=== PATIENT | male | born 1965 | race Caucasian/White ===

== ENCOUNTER 2020-05-09 09:41 | Inpatient (IN) | payer MEDICAID, SELFPAY ==
[2020-05-09] VITALS (11 sets, daily range): BP systolic 102–130; BP diastolic 60–90; PULSE 58–103; RESP 18–28; TEMP 36.3–37.7; O2SAT 93–98; BMI 35.4
--- NOTE | 2020-05-09 09:49 | ECG_ITS ---
[facility] Test Date: 2020-05-09 Pat Name: Kavon Kunz Department: Room: Gender: Male Insurance Verification Representative: : 1965 Requested By: David Shaikh Order Number: [id number] Tawny MD: Dwayne Keenan M.D. Measurements Intervals [place] Rate: 96 P: 81 CT: 161 QRS: 82 QRSD: 134 T: 85 QT: 371 QTc: 470 Interpretive Statements SINUS RHYTHM POSSIBLE RIGHT ATRIAL ENLARGEMENT [0.25mV P WAVE] INTRAVENTRICULAR CONDUCTION DELAY [130+ ms QRS DURATION] POSSIBLE ANTERIOR MYOCARDIAL INFARCTION , OF INDETERMINATE AGE [30 ms Q WAVE IN V3/V4, OR R < 0.2 mV IN V4] No previous ECG available for comparison Electronically Signed On 05-09-2020 18:28:09 HYDRAULIC ROCK DRILL OPERATOR by Dwayne Keenan M.D. [id number]
--- NOTE | 2020-05-09 10:07 | CT_ITS ---
WS: [id number] CT ABDOMEN AND PELVIS WITH CONTRAST HISTORY: Lower abdominal pain for 3 days. TECHNIQUE: Imaging performed of the abdomen and pelvis with IV contrast. Single phase imaging of the abdomen. Coronal and sagittal reformats are submitted. All CT scans at [facility] use at least one of these dose optimization techniques: automated exposure control; mA and/or kV adjustment per patient size (includes targeted exams where dose is matched to clinical indication); or iterativ e reconstruction. IV CONTRAST: Omnipaque 300; 95 mL IV. Oral contrast: No DLP: 1896.08 mGy.cm COMPARISON: None available. Lower thorax: Hyperexpansion of the lung bases. There is mild interstitial thickening and slight nodu larity suggesting respiratory bronchiolitis/pneumonitis. Heart is normal size. No hiatal hernia. Liver/biliary system: Hepatic steatosis. Marked hepatomegaly. The liver extends greater than 20 cm in length. No bile duct dilatation. No mass. Gallbladder: Normal. No gallstones or wall thickening. No pericholecystic fluid. Pancreas: Normal. Spleen: Normal. Adrenal glands: Normal RIGHT adrenal gland. Well-circumscribed low-attenuation mass measuring 1.8 cm in the LEFT adrenal gland. Right kidney: Normal. Left kidney: Normal. Aorta: Normal. Lymphadenopathy: None. Free fluid: No free fluid. There is a large amount of mesenteric inflammation centered surrounding th e sigmoid colon. GI tract: Severe inflammatory change involving the sigmoid colon over length of 8 cm. There is signif icant narrowing of the lumen with numerous diverticula and wall thickening. Severe wall thickening wi th evidence for perforation. There are numerous scattered foci of free air throughout the abdomen. Si gnificant amount of free air is present. Site of perforation is probably from the anterior sigmoid co tan where there is a large amount of inflammation and air seen between the lumen and the fat. No absc ess. Abdominal wall: Unremarkable abdominal wall. No hernia. Pelvis: Normal. Bones: Spondylitic changes in the lumbar spine. Sclerotic bone island in the LEFT ilium. CT/CT abdomen pelvis w con* [id number] IMPRESSION: 1. Significant amount of free air within the abdomen and pelvis. Free air is f rom a perforated sigmoid colon. Marked wall thickening and numerous sigmoid div erticula. Perforated sigmoid diverticulitis, underlying neoplasm is not exclude d. 2. Large amount of inflammatory change surrounding the sigmoid colon. 3. Normal appendix. 4. Marked hepatomegaly and hepatic steatosis. 5. Indeterminate LEFT adrenal nodule. Recommend follow-up CT protocol adrenal nodule evaluation after patient's acute episode of perforation resolves. Notified David Pereira DO at 05/09/2020 11:09 AM.
--- NOTE | 2020-05-09 10:08 | ED_ITS ---
HPI - Abdominal Pain General: Chief Complaint: Abdominal Pain Stated Complaint: AB PAIN Time Seen by Provider: 05/09/20 09:48 History of Present Illness: HPI narrative: 54-year-old male [resemt with abd pain. Patient's pain began yesterday. He felt like he was constipated was unable to go as a difficult time with urination or bowel movements. He states he has had a fever subjectively but when tested it is been normal. He is not having any chest pains any difficulty breathing he does state he is difficulty with urination is difficult however to get him to clarify of his just difficulty emptying bladder or actual dysuria. MD elicited complaint: abdominal pain Pertinent past history: constipation Onset (ago): day(s) (1) Location: Diffuse Severity: moderate Quality: cramping Radiation: none Exacerbating factors: movement Relieving factors: rest Associated Symptoms: Reports nausea and poor appetite; Denies anorexia, belching, bloating, change in bowel habits, change in stool character, chills, coffee ground emesis, constipation, GI cramping, diarrhea, dyspepsia, dysuria, excessive flatus, fever(s), heartburn, hematochezia, hematuria, hematemesis, fecal incontinence, loose stools, melena, syncope and vomiting Review of Systems Const: Denies: fever(s) or chills ENMT: Denies: throat pain, ear or mastoid pain, nasal discharge or nasal congestion Card: Denies: syncope Resp: Denies: dyspnea, productive cough or non-productive cough GI: Reports: nausea; Denies: vomiting, hematemesis, coffee ground emesis, heartburn, diarrhea, constipation, bloating, GI cramping, belching, excessive flatus, fecal incontinence, change in bowel habits, change in stool character, hematochezia or melena : Denies: dysuria or hematuria Skin/Breast: Denies: rash or pruritus PFSH ED PFSH: Medical History (Updated 05/09/20 @ 11:53 by Ramos Fofana MD) Arthritis Diverticulosis Hypertension Surgical History (Updated 05/09/20 @ 11:49 by Ramos Fofana MD) History of cervical discectomy Social History (Updated 05/09/20 @ 12:03 by Ramos Fofana MD) Smoking and tobacco status: current some day smoker smokeless tobacco Smokeless tobacco user: chewing tobacco Alcohol intake: current Alcohol use comment: Every other month or so Lives independently: Yes Household members: none Previous occupational history: Disabled secondary to arthritis Physical Exam Const: COMMON NORMALS: no acute distress GENERAL APPEARANCE: cooperative and comfortable ORIENTATION/CONSCIOUSNESS: Yes awake, Yes oriented to person, Yes oriented to place and Yes oriented to time HENMT: COMMON NORMALS: normocephalic, atraumatic and hearing grossly normal bilaterally HEAD & SCALP: normocephalic and atraumatic Neck/C-Spine: COMMON NORMALS: no JVD Resp: COMMON NORMALS: normal respiratory effort, No retractions, No use of accessory muscles and clear to auscultation bilaterally AUSCULTATION: clear to auscultation bilaterally Cardio: COMMON NORMALS: no JVD, regular rate, regular rhythm and No murmurs present (Cardio) RATE: regular rate RHYTHM: regular rhythm GI: COMMON NORMALS: No hepatosplenomegaly present AUSCULTATION: Yes normoactive bowel sounds PALPATION: Yes Tenderness to palpation present (GI) (difuse), No Guarding due to palpation present (GI) and Yes No hepatosplenomegaly present Extremity: COMMON NORMALS: normal to inspection, capillary refill normal, no clubbing, cyanosis or edema, no calf tenderness and no pedal edema Neuro: SENSORIUM/ORIENTATION: Yes oriented to person, Yes oriented to place and Yes oriented to time Skin: COMMON NORMALS: no rashes or lesions noted GENERAL SKIN EXAM: no rashes or lesions noted Course Vital Signs: Vital signs: Vital Signs Temperature 98.3 F 05/10/20 04:00 Pulse Rate 82 05/10/20 04:00 Respiratory Rate 19 H 05/10/20 05:59 Blood Pressure 122/75 05/10/20 04:00 Pulse Oximetry 95 05/10/20 04:00 MDM - Abdominal Pain MDM Narrative: Medical decision making narrative: CT shows free air in the abdomen. Reviewed with Dr. Mccallum. Patient has perforated diverticuli discussed with Patient started on Zosyn and will be admitted to his services orders are written. Lab Data: Labs: Lab Results 05/09/20 05/09/20 05/09/20 Range/Units 10:04 10:04 10:04 WBC 14.3 H (4.0-10.0) 10^3/ uL RBC 5.20 (4.1-5.3) 10^6/u L Hgb 15.4 (11.7-16.6) g/dL Hct 48.8 (42.0-52.0) % MCV 93.8 (80-94) fL MCH 29.6 (28.0-34.0) pg MCHC 31.6 (30.0-36.0) g/dL RDW 12.1 (12.1-15.1) % Plt Count 231 (130-400) 10^3/c mm MPV 10.7 H (7.4-10.4) fL Neut % (Auto) 86.0 % Lymph % (Auto) 7.7 % Sabine % (Auto) 4.3 % Eos % (Auto) 0.7 % Baso % (Auto) 0.6 % Neut # (Auto) 12.26 H (1.8-7.7) 10^3/u L Lymph # (Auto) 1.1 (0.8-4.8) 10^3/u L Sabine # (Auto) 0.6 (0.2-0.9) 10^3/u L Eos # (Auto) 0.1 (0.0-0.8) 10^3/u L Baso # (Auto) 0.1 (0.0-0.1) 10^3/u L Nucleated RBC % (a uto) 0 % Nucleated RBCs # 0.0 /100WBC Sodium 133 L (136-145) mmol/L Potassium 4.4 (3.5-5.1) mmol/L Chloride 94 L (98-107) mmol/L Carbon Dioxide 28 (22-29) mmol/L Anion Gap 15.4 (5-19) BUN 5 L (6-20) mg/dL Creatinine 0.6 L (0.7-1.2) mg/dL GFR Calculation 139.9 H (90-130) mL/min Glucose 322 H (65-115) mg/dL Calculated Osmolal ity 286 (285-295) mOsm/k g Lactic Acid (0.5-2.2) mmol/L Calcium 9.4 (8.5-10.5) mg/dL Magnesium 1.8 (1.7-2.3) mg/dL Total Bilirubin 1.5 H (0.15-1.2) mg/dL AST 15 (0-40) U/L ALT 25 (0-41) U/L Alkaline Phosphata se 129 (40-130) IU/L Troponin T Baselin e 9 (0-15) ng/L Total Protein 6.5 L (6.6-8.7) g/dL Albumin 4.2 (3.5-5.2) g/dL Globulin 2.3 (1.3-4.6) g/dL Lipase 10 L (13-60) U/L Urine Color (Yellow) Urine Appearance (CLEAR) Urine pH (5-7) Ur Specific Gravit y (1.005-1.030) Urine Protein (Negative) Urine Glucose (UA) (Normal) Urine Ketones (Negative) Urine Blood (Negative) Urine Nitrate (Negative) Urine Bilirubin (Negative) Prot Sulfosalicyli c Acd (Negative) Urine Urobilinogen (Negative) mg/dL Ur Leukocyte Keysha ase (Negative) 05/09/20 05/09/20 Range/Units 10:04 11:36 WBC (4.0-10.0) 10^3/ uL RBC (4.1-5.3) 10^6/u L Hgb (11.7-16.6) g/dL Hct (42.0-52.0) % MCV (80-94) fL MCH (28.0-34.0) pg MCHC (30.0-36.0) g/dL RDW (12.1-15.1) % Plt Count (130-400) 10^3/c mm MPV (7.4-10.4) fL Neut % (Auto) % Lymph % (Auto) % Sabine % (Auto) % Eos % (Auto) % Baso % (Auto) % Neut # (Auto) (1.8-7.7) 10^3/u L Lymph # (Auto) (0.8-4.8) 10^3/u L Sabine # (Auto) (0.2-0.9) 10^3/u L Eos # (Auto) (0.0-0.8) 10^3/u L Baso # (Auto) (0.0-0.1) 10^3/u L Nucleated RBC % (a uto) % Nucleated RBCs # /100WBC Sodium (136-145) mmol/L Potassium (3.5-5.1) mmol/L Chloride (98-107) mmol/L Carbon Dioxide (22-29) mmol/L Anion Gap (5-19) BUN (6-20) mg/dL Creatinine (0.7-1.2) mg/dL GFR Calculation (90-130) mL/min Glucose (65-115) mg/dL Calculated Osmolal ity (285-295) mOsm/k g Lactic Acid 3.1 H (0.5-2.2) mmol/L Calcium (8.5-10.5) mg/dL Magnesium (1.7-2.3) mg/dL Total Bilirubin (0.15-1.2) mg/dL AST (0-40) U/L ALT (0-41) U/L Alkaline Phosphata se (40-130) IU/L Troponin T Baselin e (0-15) ng/L Total Protein (6.6-8.7) g/dL Albumin (3.5-5.2) g/dL Globulin (1.3-4.6) g/dL Lipase (13-60) U/L Urine Color Yellow (Yellow) Urine Appearance Clear (CLEAR) Urine pH 8 H (5-7) Ur Specific Gravit y 1.005 (1.005-1.030) Urine Protein Neg (Negative) Urine Glucose (UA) 4+ H (Normal) Urine Ketones Negative (Negative) Urine Blood Neg (Negative) Urine Nitrate Negative (Negative) Urine Bilirubin Neg (Negative) Prot Sulfosalicyli c Acd Negative (Negative) Urine Urobilinogen 1 H (Negative) mg/dL Ur Leukocyte Keysha ase Negative (Negative) Discharge Plan Discharge Patient Disposition: Admitted As Inpatient Admit Provider: Ramos Fofana Clinical Impression: Diverticulitis, Perforation of sigmoid colon due to diverticulitis Condition: Stable Coding Level of Care Code ED Head Of Talent Management for [place] Fwd Exam Comprehensive
[2020-05-09 10:28] LABS: Basophils # 0.1 10^3/uL (0.0-0.1); Basophils % 0.6 %; Eosinophils # 0.1 10^3/uL (0.0-0.8); Eosinophils % 0.7 %; Hematocrit 48.8 % (42.0-52.0); Hemoglobin 15.4 g/dL (11.7-16.6); Lymphocytes # 1.1 10^3/uL (0.8-4.8); Lymphocytes % 7.7 %; Mean Corpuscular HGB Conc 31.6 g/dL (30.0-36.0); Mean Corpuscular Hemoglobin 29.6 pg (28.0-34.0); Mean Corpuscular Volume 93.8 fL (80-94); Mean Platelet Volume 10.7 fL (7.4-10.4); Monocytes # 0.6 10^3/uL (0.2-0.9); Monocytes % 4.3 %; Neutrophils # 12.26 10^3/uL (1.8-7.7); Nucleated Red Blood Cells % 0 %; Platelet Count 231 10^3/cmm (130-400); Red Cell Distribution Width 12.1 % (12.1-15.1); White Blood Count 14.3 10^3/uL (4.0-10.0)
[2020-05-09 10:46] LABS: Alanine Aminotransferase 25 U/L (0-41); Albumin Level 4.2 g/dL (3.5-5.2); Alkaline Phosphatase 129 IU/L (40-130); Anion Gap 15.4 (5-19); Aspartate Amino Transferase 15 U/L (0-40); Blood Urea Nitrogen 5 mg/dL (6-20); Calcium 9.4 mg/dL (8.5-10.5); Carbon Dioxide 28 mmol/L (22-29); Chloride 94 mmol/L (98-107); Globulin 2.3 g/dL (1.3-4.6); Glomerular Filtration Rate 139.9 mL/min (90-130); Glucose 322 mg/dL (65-115); Lipase 10 U/L (13-60); Magnesium 1.8 mg/dL (1.7-2.3); Osmolality Calculated 286 mOsm/kg (285-295); Potassium 4.4 mmol/L (3.5-5.1); Sodium 133 mmol/L (136-145); Total Bilirubin 1.5 mg/dL (0.15-1.2); Total Protein 6.5 g/dL (6.6-8.7); Troponin(5th) Baseline 9 ng/L (0-15)
[2020-05-09] MEDS: iohexol 300 mg/mL 100 mL Btl IV (10:59)
--- NOTE | 2020-05-09 11:47 | P.HP_ITS ---
Providers/Chief Complaint Admitting Physician: General Surgery Ramos Fofana MD Chief Complaint: AB PAIN History of Present Illness Kavon Kunz is a 54 year old male who says he awoke early in the morning 2 days ago with lower abdominal discomfort. He thought maybe he was just initially constipated. He had a bowel movement yesterday which consisted of small hard balls. The pain persisted. He was experiencing some nausea but has not vomited. This morning he developed some chills and thinks he may have been running a fever. He continued to feel more bloated and was brought by his cousin to the emergency room where a CAT scan showed changes consistent with perforated sigmoid diverticulitis. The patient says he just had a colonoscopy about 2 months ago in [place], [place]. He was told that there were no problems. He denies any known history of colon neoplasia in the family. Of note, the patient usually seeks his medical care in [place], [place]. He elected to come this direction because he is tired of them not doing anything for me. He says he was on some medication for hypertension until recently, but discontinued it because it was killing me and the nurse practitioner would not do anything about it. Review of Systems General: Reports: 10 or more systems reviewed and unremarkable except in HPI and below Const: Reports: fever(s) and chills ENMT: Reports: dry mouth GI: Reports: abdominal pain, nausea, constipation and bloating; Denies: vomiting or hematochezia Musc: Reports: joint pain (Chronic) Medications/Allergies Home Medications Medication Instructions Recorded Confirmed Last Taken Type No Known Home Medications 05/09/20 05/09/20 Unknown History Allergies Allergy/AdvReac Type Severity Reaction Status Date / Time No Known Allergies Allergy Verified 05/09/20 09:53 PFSH Acute PFSH: Medical History (Updated 05/09/20 @ 11:53 by Ramos Fofana MD) Arthritis Diverticulosis Hypertension Surgical History (Updated 05/09/20 @ 11:49 by Ramos Fofana MD) History of cervical discectomy Social History (Updated 05/09/20 @ 12:03 by Ramos Fofana MD) Smoking and tobacco status: current some day smoker smokeless tobacco Smokeless tobacco user: chewing tobacco Alcohol intake: current Alcohol use comment: Every other month or so Lives independently: Yes Household members: none Previous occupational history: Disabled secondary to arthritis Vitals/I&O/Wt Last Vital Signs Temp 98.7 F 05/09/20 09:45 Pulse 103 H 05/09/20 10:38 Resp 18 05/09/20 10:38 Pulse Ox 95 05/09/20 10:38 Weight last 48 hrs Weight 240 lb Physical Exam Narrative: EXAM NARRATIVE: The patient was encountered in his room in the emergency department. He does not appear to be in any acute distress but he asked like he is uncomfortable when he tries to move around. Despite this, he will sit up on the side of his bed and move around fairly regularly. The pupils are equal. No carotid bruits are heard. The lungs reveal some inspiratory wheezes bilaterally. The heart seems regular. The abdomen is moderately obese. Bowel sounds are infrequent. The patient does have scattered tenderness about the abdomen with the maximum area of tenderness across the lower abdomen. No obvious masses are palpated. The extremities reveal no edema. Neurologically the patient appears to be grossly intact Data : 05/09/20 10:04 05/09/20 10:04 CT Abd/Pel: Radiologist's impression: CT abdomen/pelvis 05/09/2020 IMPRESSION: 1. Significant amount of free air within the abdomen and pelvis. Free air is from a perforated sigmoid colon. Marked wall thickening and numerous sigmoid diverticula. Perforated sigmoid diverticulitis, underlying neoplasm is not excluded. 2. Large amount of inflammatory change surrounding the sigmoid colon. 3. Normal appendix. 4. Marked hepatomegaly and hepatic steatosis. 5. Indeterminate LEFT adrenal nodule. Recommend follow-up CT protocol adrenal nodule evaluation after patient's acute episode of perforation resolves. A&P Assessment and plan (1) Perforation of sigmoid colon due to diverticulitis: CT reviewed. There is little question that the patient has a perforation of the sigmoid colon. The radiologist suggested there was a significant amount of free air in the abdomen. I would consider this to be fairly small amount, although the patient does have scattered small bubbles of air even into the upper abdomen. He reports having an otherwise normal colonoscopy about 2 months ago. I discussed diverticulitis with the patient in some detail. We discussed medical and surgical issues of management. I told him that given the current appearance of his CAT scan in addition to his physical exam, I would at least be willing to try some broad-spectrum antibiotics to see if we can get this to improve without surgery. If this does not work, however, we have already disc ussed Shivani procedures, partial colectomy with other possible diversion, etc. He would obviously like to avoid this if at all possible and would like to at least attempt conservative management to start. I am going to place the patient on some broad-spectrum antibiotics and we will continue keeping a close eye on him daily. If he does show improvement hopefully surgery can be avoided. If he does not improve, or certainly if he worsens, then he is aware that surgery is going to be most likely needed. Given his otherwise limited medical history, I am going to hold off on involving the hospitalist team for now, but if he starts showing more evidence of hypertension or other medical issues, I will get them involved for medical management. Status: Acute Attestations Medical Necessity Statement*: Based on my medical assessment, presenting symptoms, medical accuity and consideration of surgical therapy, I expect this patient will require treatment in the hospital for a period spanning at least 2 midnights. Coding Level of Care Code Acute Central Communications Specialist for [facility] Diagnoses Perforation of sigmoid colon due to diverticulitis K57.20
--- NOTE | 2020-05-09 11:49 | ECG_ITS ---
[facility] Test Date: 2020-05-09 Pat Name: Kavon Kunz Department: Room: 279 Gender: Male Door Person: : 1965 Requested By: David Shaikh Order Number: [id number] Tawny MD: Dwayne Keenan M.D. Measurements Intervals [place] Rate: 96 P: 77 SD: 153 QRS: 33 QRSD: 141 T: 89 QT: 384 QTc: 487 Interpretive Statements SINUS RHYTHM WITH OCCASIONAL SUPRAVENTRICULAR PREMATURE COMPLEXES POSSIBLE LEFT ATRIAL ENLARGEMENT [-0.1mV P WAVE IN V1/V2] LEFT BUNDLE BRANCH BLOCK [120+ ms QRS DURATION, 80+ ms Q/S IN V1/V2, 85+ ms R IN I/aVL/V5/V6] Compared to ECG 05/09/2020 10:32:48 Left bundle-branch block now present Intraventricular conduction delay no longer present Myocardial infarct finding no longer present Electronically Signed On 05-09-2020 19:05:34 TELEVISION PRODUCTION TECHNICIAN by Dwayne Keenan M.D. [id number]
[2020-05-09 12:07] LABS: Add Urine Microscopic? NO
[2020-05-09] MEDS: heparin 5,000 unit/mL INJ 1 mL 5000 UNIT SUBCUT (12:07)
[2020-05-09] MEDS: famotidine 20 mg/2 mL INJ IVP (12:13)
[2020-05-09] MEDS: D5-NS 0.45% + KCL 20 mEq 20 MEQ/1,000 ML BAG 100 MEQ IV (12:15)
[2020-05-09 12:19] LABS: Bilirubin Urine Neg (Negative); Blood Urine Neg (Negative); Glucose Urine UA 4+ (Normal); Ketones Urine Negative (Negative); Leukocyte Esterase Urine Negative (Negative); Nitrate Urine Negative (Negative); Protein Urine Neg (Negative); Specific Gravity, Urine 1.005 (1.005-1.030); Sulfosalicylic Acid Urine Negative (Negative); Urine Appearance Clear (CLEAR); Urine Color Yellow (Yellow); Urobilinogen Urine 1 mg/dL (Negative); pH Urine 8 (5-7)
[2020-05-09] MEDS: piperacillin-tazobactam 3.375 GM in sodium chloride 0.9% (plus) 50 ML IV ×2 (12:29→20:51)
[2020-05-09 13:00] LABS: Lactic Sepsis W/Reflex 3.1 mmol/L (0.5-2.2)
[2020-05-09 14:23] LABS: Reflex Lactate Order REFLEX LACTIC ORDERD
[2020-05-09] MEDS: metroNIDAZOLE 500 MG Tablet PO ×2 (15:11→20:52)
[2020-05-09] MEDS: morphine 4 mg/mL SDV 1 mL IVP ×2 (15:28→20:52)
--- NOTE | 2020-05-09 15:49 | ECG_ITS ---
[facility] Test Date: 2020-05-09 Pat Name: Kavon Kunz Department: Room: 250 Gender: Male Personal Vehicle Advisor: : 1965 Requested By: David Shaikh Order Number: [id number] Tawny MD: Dwayne Keenan M.D. Measurements Intervals [place] Rate: 85 P: 72 AR: 155 QRS: 32 QRSD: 139 T: 102 QT: 399 QTc: 475 Interpretive Statements SINUS RHYTHM INTRAVENTRICULAR CONDUCTION DELAY [130+ ms QRS DURATION] POSSIBLE ANTERIOR MYOCARDIAL INFARCTION [30 ms Q WAVE IN V3/V4, OR R < 0.2 mV IN V4], OF INDETERMINATE AGE Compared to ECG 05/09/2020 12:21:45 Intraventricular conduction delay now present Myocardial infarct finding now present Left bundle-branch block no longer present Electronically Signed On 05-09-2020 18:57:03 INSTRUCTOR ADJUNCT SURGICAL TECHNICIAN by Dwayne Keenan M.D. [id number]
[2020-05-09 16:47] LABS: Lactic Acid level (Lactate) 1.7 mmol/L (0.5-2.2)
[2020-05-09 17:43] LABS: Troponin 5 6HR 8.21 ng/L (0-15)
[2020-05-09 17:44] LABS: Troponin 5 6HR Delta -0.79 ng/L (0-12)
[2020-05-09 18:16] LABS: Alanine Aminotransferase 23 U/L (0-41); Albumin Level 3.7 g/dL (3.5-5.2); Alkaline Phosphatase 115 IU/L (40-130); Anion Gap 17.3 (5-19); Aspartate Amino Transferase 14 U/L (0-40); Blood Urea Nitrogen 5 mg/dL (6-20); C Reactive Protein 160.5 mg/L (0.0-4.9); Calcium 8.9 mg/dL (8.5-10.5); Carbon Dioxide 22 mmol/L (22-29); Chloride 95 mmol/L (98-107); Globulin 2.9 g/dL (1.3-4.6); Glomerular Filtration Rate 139.9 mL/min (90-130); Glucose 259 mg/dL (65-115); Osmolality Calculated 276 mOsm/kg (285-295); Potassium 4.3 mmol/L (3.5-5.1); Sodium 130 mmol/L (136-145); Total Bilirubin 1.3 mg/dL (0.15-1.2); Total Protein 6.6 g/dL (6.6-8.7)
[2020-05-10] VITALS (11 sets, daily range): BP systolic 110–129; BP diastolic 74–79; PULSE 81–91; RESP 18–25; TEMP 36.6–37.4; O2SAT 91–95
[2020-05-10] MEDS: famotidine 20 mg/2 mL INJ IVP ×3 (00:11→23:42)
[2020-05-10] MEDS: heparin 5,000 unit/mL INJ 1 mL 5000 UNIT SUBCUT ×3 (00:11→23:42)
[2020-05-10] MEDS: piperacillin-tazobactam 3.375 GM in sodium chloride 0.9% (plus) 50 ML IV ×3 (05:00→20:57)
[2020-05-10] MEDS: morphine 4 mg/mL SDV 1 mL IVP ×4 (05:59→21:08)
[2020-05-10 06:48] LABS: Basophils # 0.1 10^3/uL (0.0-0.1); Basophils % 0.6 %; Eosinophils # 0.1 10^3/uL (0.0-0.8); Eosinophils % 0.5 %; Hematocrit 44.6 % (42.0-52.0); Hemoglobin 14.1 g/dL (11.7-16.6); Lymphocytes # 1.1 10^3/uL (0.8-4.8); Lymphocytes % 8.9 %; Mean Corpuscular HGB Conc 31.6 g/dL (30.0-36.0); Mean Corpuscular Hemoglobin 29.4 pg (28.0-34.0); Mean Corpuscular Volume 92.9 fL (80-94); Mean Platelet Volume 11.2 fL (7.4-10.4); Monocytes # 0.5 10^3/uL (0.2-0.9); Neutrophils # 10.46 10^3/uL (1.8-7.7); Neutrophils % 85.4 %; Nucleated Red Blood Cells % 0 %; Platelet Count 176 10^3/cmm (130-400); Red Cell Distribution Width 11.9 % (12.1-15.1); White Blood Count 12.2 10^3/uL (4.0-10.0)
[2020-05-10 08:12] LABS: Anion Gap 13.2 (5-19); Blood Urea Nitrogen 7 mg/dL (6-20); Calcium 8.5 mg/dL (8.5-10.5); Carbon Dioxide 26 mmol/L (22-29); Chloride 96 mmol/L (98-107); Glomerular Filtration Rate 139.9 mL/min (90-130); Glucose 203 mg/dL (65-115); Osmolality Calculated 276 mOsm/kg (285-295); Potassium 4.2 mmol/L (3.5-5.1); Sodium 131 mmol/L (136-145)
[2020-05-10] MEDS: metroNIDAZOLE 500 MG Tablet PO ×3 (08:57→20:57)
--- NOTE | 2020-05-10 08:58 | P.PN_ITS ---
Subjective Subjective: Interval history: The patient indicates he already feels better this morning. He says he still has pain of 8/10 but he says it is because of my hernias. He is now passing flatus. He was wondering if we could do surgery to cut those hernias out and fix my colon at the same time. Vitals/I&O/Wt Last Vital Signs Temp 98.6 F 05/10/20 07:24 Pulse 83 05/10/20 07:24 Resp 18 05/10/20 07:24 BP 122/78 05/10/20 07:24 Pulse Ox 92 05/10/20 07:24 05/09/20 05/10/20 05/10/20 22:59 06:59 14:59 Intake Total 290 / 1340 1050 / 1340 39.583 / 39.583 Output Total 600 / 1700 1100 / 1700 Balance -310 / -360 -50 / -360 39.583 / 39.583 Weight last 48 hrs Weight 240 lb Physical Exam Narrative: EXAM NARRATIVE: Bowel sounds are better. The patient does have small bilateral inguinal hernias that are only noticeable on Valsalva and reduce spontaneously after the maneuver. His lower abdomen does seem less tender to me today. Data : 05/10/20 05:44 05/10/20 05:44 A&P Assessment and plan (1) Perforation of sigmoid colon due to diverticulitis: The patient's white blood cell count is slightly improved and he is feeling better. Continue intravenous Zosyn. I explained once again the desire to try to keep him out of the operating room right now, as he would likely end up with a colostomy if he had any surgery for his colon. He once again seemed to understand the current plan. Status: Acute (2) Bilateral inguinal hernia: Despite the fact that the patient seems to believe he is having some intermittent symptoms from these, they are both very small and do not pose any kind of an immediate threat. I told him that any procedure to repair these wo uld be something to entertain in the future. Status: Acute Qualifiers: Obstruction and gangrene presence: without obstruction or gangrene Recurrence: non-recurrent Qualified Code(s): K40.20 - Bilateral inguinal hernia, without obstruction or gangrene, not specified as recurrent Attestations Medical Necessity Statement*: Patient requires continued inpatient treatment for intravenous antibiotics/treatment of perforated sigmoid diverticulitis. Coding Level of Care Code Acute Make Up Arranger for [facility] Fwd Diagnoses Perforation of sigmoid colon due to diverticulitis K57.20 Bilateral inguinal hernia K40.20 Obstruction and gangrene presence: without obstruction or gangrene Recurrence: non-recurrent
[2020-05-10] MEDS: sodium chlor 0.9% + KCl 20 mEq 20 MEQ/1,000 ML BAG 100 MEQ IV ×2 (10:49→23:41)
[2020-05-11] VITALS (11 sets, daily range): BP systolic 100–142; BP diastolic 56–77; PULSE 77–86; RESP 15–20; TEMP 36.6–37.4; O2SAT 92–95
[2020-05-11] MEDS: piperacillin-tazobactam 3.375 GM in sodium chloride 0.9% (plus) 50 ML IV ×3 (04:07→20:29)
[2020-05-11 06:22] LABS: Basophils # 0.1 10^3/uL (0.0-0.1); Basophils % 0.6 %; Eosinophils % 0.3 %; Hemoglobin 12.8 g/dL (11.7-16.6); Lymphocytes # 0.7 10^3/uL (0.8-4.8); Lymphocytes % 6.6 %; Mean Corpuscular HGB Conc 31.2 g/dL (30.0-36.0); Mean Corpuscular Hemoglobin 29.1 pg (28.0-34.0); Mean Corpuscular Volume 93.2 fL (80-94); Mean Platelet Volume 10.7 fL (7.4-10.4); Monocytes # 0.5 10^3/uL (0.2-0.9); Monocytes % 4.7 %; Neutrophils % 86.7 %; Nucleated Red Blood Cells % 0 %; Platelet Count 183 10^3/cmm (130-400); White Blood Count 10.7 10^3/uL (4.0-10.0)
[2020-05-11 06:44] LABS: Anion Gap 12.4 (5-19); Blood Urea Nitrogen 7 mg/dL (6-20); Calcium 8.3 mg/dL (8.5-10.5); Carbon Dioxide 25 mmol/L (22-29); Chloride 98 mmol/L (98-107); Glomerular Filtration Rate 139.9 mL/min (90-130); Glucose 165 mg/dL (65-115); Osmolality Calculated 274 mOsm/kg (285-295); Potassium 4.4 mmol/L (3.5-5.1); Sodium 131 mmol/L (136-145)
--- NOTE | 2020-05-11 09:52 | PM.PN ---
Subjective Subjective: Interval history: The patient says he continues to feel better daily. His pain is down to a 6?7/10 today. He continues to pass flatus. The patient's appetite is improving and he was wondering about eating solid food. Vitals/I&O/Wt Last Vital Signs Temp 99.1 F 05/11/20 08:00 Pulse 77 05/11/20 08:00 Resp 18 05/11/20 08:00 BP 108/65 05/11/20 08:00 Pulse Ox 94 05/11/20 08:00 05/10/20 05/11/20 05/11/20 22:59 06:59 14:59 Intake Total 150 / 3366.667 2206.667 / 3366.667 50 / 50 Output Total 851 / 851 Balance 150 / 2515.667 1355.667 / 2515.667 50 / 50 Physical Exam Narrative: EXAM NARRATIVE: Upon entering the room it was found that the patient had a clear liquid tray but somehow was in the process of eating a bowl of oatmeal. Bowel sounds remain a little hypoactive. He still has some scattered tenderness across the lower abdomen. Data : 05/11/20 05:40 05/11/20 05:40 A&P Assessment and plan (1) Perforation of sigmoid colon due to diverticulitis: The patient continues to improve subjectively and objectively. His white blood cell count has nearly normalized. Continue intravenous Zosyn. I told the patient that if he continues to improve it may be possible that we can discharge him on oral antibiotics as early as tomorrow. I will check laboratory studies again in the morning. The patient had some oatmeal on his clear liquid tray; nursing is going to try to keep a close eye on what he gets from dietary. I told him that I would prefer he stay on a clear liquid diet as long as he continues to have pain on the level that he seems to indicate, but his exam certainly does not seem to suggest that he has much tenderness objectively. Status: Acute (2) Bilateral inguinal hernia: Despite the fact that the patient seems to believe he is having some intermittent symptoms from these, they are both very small and do not appear to pose any kind of an immediate threat. I told him that any procedure to repair these would be something to entertain in the future. Status: Acute Qualifiers: Obstruction and gangrene presence: without obstruction or gangrene Recurrence: non-recurrent Qualified Code(s): K40.20 - Bilateral inguinal hernia, without obstruction or gangrene, not specified as recurrent Attestations Medical Necessity Statement*: Patient requires continued inpatient care for intravenous antibiotics for perforated sigmoid diverticulitis. Coding Level of Care Code Acute Six Color Press Operator [facility] Diagnoses Perforation of sigmoid colon due to diverticulitis K57.20 Bilateral inguinal hernia K40.20 Obstruction and gangrene presence: without obstruction or gangrene Recurrence: non-recurrent
[2020-05-11] MEDS: morphine 4 mg/mL SDV 1 mL IVP ×4 (10:16→23:27)
[2020-05-11] MEDS: metroNIDAZOLE 500 MG Tablet PO ×3 (10:17→21:58)
[2020-05-11 11:54] LABS: Coronavirus Test Green County Not Detected
[2020-05-11] MEDS: heparin 5,000 unit/mL INJ 1 mL 5000 UNIT SUBCUT ×2 (14:25→23:29)
[2020-05-11] MEDS: sodium chlor 0.9% + KCl 20 mEq 20 MEQ/1,000 ML BAG 100 MEQ IV (14:25)
[2020-05-11] MEDS: famotidine 20 mg/2 mL INJ IVP ×2 (14:26→23:30)
[2020-05-11 19:16] LABS: Glucose Point of Care 98 mg/dL (70-110)
[2020-05-11] MEDS: ciprofloxacin 500 mg Tablet PO (21:58)
--- NOTE | 2020-05-11 22:36 | PC.NURSE ---
Nursing 24 chart review completed.
[2020-05-12] VITALS (14 sets, daily range): BP systolic 121–154; BP diastolic 66–93; PULSE 72–78; RESP 17–24; TEMP 36–37.1; O2SAT 93–97
[2020-05-12] MEDS: sodium chlor 0.9% + KCl 20 mEq 20 MEQ/1,000 ML BAG 100 MEQ IV ×2 (01:37→15:32)
[2020-05-12] MEDS: piperacillin-tazobactam 3.375 GM in sodium chloride 0.9% (plus) 50 ML IV ×3 (04:26→20:03)
[2020-05-12] MEDS: morphine 4 mg/mL SDV 1 mL IVP ×3 (04:49→21:15)
[2020-05-12] MEDS: ondansetron 2 mg/ML SDV 2 mL 4 MG IVP (05:10)
--- NOTE | 2020-05-12 05:34 | CTR_ITS ---
PROCEDURE INFORMATION: Exam: CT Abdomen And Pelvis Without Contrast Exam date and time: 05/12/2020 5:40 AM Age: 54 years old Clinical indication: Abdominal pain; Localized; Lower; Additional info: Abd pain TECHNIQUE: Imaging protocol: Computed tomography of the abdomen and pelvis without contrast. Radiation optimization: All CT scans at this facility use at least one of these dose optimization techniques: automated exposure control; mA and/or kV adjustment per patient size (includes targeted exams where dose is matched to clinical indication); or iterative reconstruction. COMPARISON: CT abdomen pelvis w con* [id number] 05/09/2020 11:09 AM RADIATION DOSE METRICS: Total DLP (mGy-cm): 1603.05 FINDINGS: Liver: There is hypoattenuation of the hepatic parenchyma compatible with fatty infiltration. Gallbladder and bile ducts: Normal. No calcified stones. No ductal dilation. Pancreas: Normal. No ductal dilation. Spleen: Normal. No splenomegaly. Adrenal glands: Normal. No mass. Kidneys and ureters: Strandy opacities are seen in the perinephric fascia bilaterally likely representing chronic scarring. Stomach and bowel: There are dilated loops of small bowel present containing fluid and air fluid levels proximally with nondilated small bowel present distally, findings compatible with a small-bowel obstruction. The transition is likely present in the right lower quadrant near the ileocecal valve. Strandy and hazy opacities are seen within the cecal mesentery compatible with inflammatory changes. Diverticula seen the sigmoid colon. There is mild bowel wall thickening seen within the mid sigmoid colon , findings that may represent inflammatory changes and diverticulitis. Additionally, there is some free air seen within the mesenteric fat and fascia adjacent to the sigmoid colon likely representing a perforated diverticulum. Appendix: The appendix is visualized and is normal in configuration. Intraperitoneal space: See Stomach and bowel finding. Vasculature: Unremarkable. No abdominal aortic aneurysm. Lymph nodes: Unremarkable. No enlarged lymph nodes. Urinary bladder: Unremarkable as visualized. Reproductive: Unremarkable as visualized. Bones/joints: Unremarkable. No acute fracture. Soft tissues: There are bilateral inguinal hernias present containing fat. CT/CT abdomen pelvis wo con [id number] IMPRESSION: 1. Multiple dilated small bowel loops containing fluid and air fluid levels are seen proximally. There are loops of small bowel seen in the right lower quadrant there are nondilated. These findings are compatible with a small-bowel obstruction. 2. There diffuse inflammatory changes seen within the cecal mesentery and within the mesenteric fat and fascia the mid sigmoid colon. 3. Diverticulosis of the sigmoid colon. There is some bowel wall thickening seen within the mid sigmoid colon and there is adjacent haziness seen within the sigmoid mesentery. These findings are compatible with diverticulitis. Additionally, there is some free air present within the pelvis adjacent to the sigmoid colon and a perforated diverticulum is likely. 4. The appendix is visualized and is normal in configuration. 5. Fatty infiltration of the liver Radiation Dose CTDIVOL = (mGy): DLP = 1603.05 (mGy-cm)
--- NOTE | 2020-05-12 05:49 | PC.NURSE ---
During pain medication administration this nurse noted an increase in abdominal girth. Patient has hyperactive bowel sounds to Left and Right upper quadrants and right lower quadrant. Significant hypoactive bowel sounds to LLQ. Patient vomited approximately 50 ml of brown green emesis. VS taken and are wnl. On reassessment patient voiced increased in abdominal pressure and pain. Physician notified. Orders received.
--- NOTE | 2020-05-12 06:23 | PC.NURSE ---
PATIENT UPDATE: PATIENT TAKEN FOR STAT CT BY THIS NURSE, WHILE OUT OF ROOM HAD EQUIPMENT MAINTENANCE ENGINEER DISPOSE OF ALL LIQUID DUE TO ORDER FROM DR. GALLEGOS TO MAKE HIM NPO. PATIENT CAME BACK TO ROOM, NOTICED ICE IN SINK AND DEMANDED WATER STATING I HAVE TO HAVE SOMETHING TO DRINK OR HE GETS DRY AND CHOKES. YOU CAN CALL THE DR IF YOU WANT TO BUT THAT IS JUST THE WAY IT IS THIS NURSE AND Josey WEBSTER RN ATTEMPTED TO EDUCATE PATIENT ON NEED TO BE NPO DUE TO CHANGES IN BOWEL SOUNDS AND ABDOMINAL GIRTH. BED ALARM WAS SET TO NOTIFY NURSING STAFF IF HE TRIED TO GET UP TO GET FLUIDS TO ATTEMPT TO REDIRECT. BED ALARM WENT OFF WITHIN 5 MINUTES OF IT BEING SET. THIS NURSE ALONG WITH Josey WEBSTER RN ENTERED ROOM AND NOTICED PATIENT WAS WALKING AROUND ROOM WITH A CUP OF WATER HE HAD FILLED IN THE SINK AND RESTATED THAT HE HAD TO HAVE A LITTLE SOMETHING TO SIP ON OR HE COULD NOT BREATH. HE REFILLED THE CUP AND WALKED AWAY FROM STAFF. PATIENT IS AGITATED SO STAFF EXITED HIS ROOM IN AN ATTEMPT TO CALM HIM.
[2020-05-12 06:28] LABS: Basophils # 0.1 10^3/uL (0.0-0.1); Basophils % 0.4 %; Eosinophils % 0.3 %; Hematocrit 43.2 % (42.0-52.0); Hemoglobin 13.6 g/dL (11.7-16.6); Lymphocytes % 8.6 %; Mean Corpuscular HGB Conc 31.5 g/dL (30.0-36.0); Mean Corpuscular Hemoglobin 29.4 pg (28.0-34.0); Mean Corpuscular Volume 93.3 fL (80-94); Mean Platelet Volume 11.2 fL (7.4-10.4); Monocytes # 0.8 10^3/uL (0.2-0.9); Monocytes % 6.9 %; Neutrophils # 9.58 10^3/uL (1.8-7.7); Neutrophils % 82.7 %; Nucleated Red Blood Cells % 0 %; Platelet Count 211 10^3/cmm (130-400); Red Blood Count 4.63 10^6/uL (4.1-5.3); Red Cell Distribution Width 12.1 % (12.1-15.1); White Blood Count 11.6 10^3/uL (4.0-10.0)
[2020-05-12 06:51] LABS: Anion Gap 15.4 (5-19); Blood Urea Nitrogen 11 mg/dL (6-20); Calcium 8.2 mg/dL (8.5-10.5); Carbon Dioxide 22 mmol/L (22-29); Chloride 95 mmol/L (98-107); Glomerular Filtration Rate 139.9 mL/min (90-130); Glucose 150 mg/dL (65-115); Osmolality Calculated 268 mOsm/kg (285-295); Potassium 4.4 mmol/L (3.5-5.1); Sodium 128 mmol/L (136-145)
--- NOTE | 2020-05-12 06:59 | PC.NURSE ---
RAYMOND called and wanted to speak with the doctor of this patient at this time regarding patient CT scan. Updated RAYMOND at it was Dr. Fofana. Called Dr. Fofana and informed them they were needing to speak to him. Dr. Fofana asked that they call his phone as he has a patient on the table in surgery at this time.
--- NOTE | 2020-05-12 08:56 | PM.PN ---
Subjective Subjective: Interval history: I was called at 5:30 AM this morning regarding the patient having more abdominal distention and some emesis. I ordered another CAT scan of the abdomen and pelvis. The reporting radiologist indicated that the patient still has some free air outside of the sigmoid colon but he did not see any any other evidence of free intraperitoneal air. He did see evidence of a small bowel obstruction likely secondary to inflammation from the sigmoid process. The patient says he was feeling well until he woke up this morning with some abdominal cramping and then started having some vomiting. I had nursing placed a nasogastric tube and he says he feels better now. He says he is already had 4 loose bowel movements since this morning. Vitals/I&O/Wt Last Vital Signs Temp 97.9 F 05/12/20 08:00 Pulse 72 05/12/20 08:00 Resp 19 H 05/12/20 08:00 BP 154/93 05/12/20 08:00 Pulse Ox 93 05/12/20 08:00 05/11/20 05/12/20 05/12/20 22:59 06:59 14:59 Intake Total 170 / 2773.333 1350 / 2773.333 576.250 / 576.250 Output Total 325 / 325 Balance 170 / 2448.333 1025 / 2448.333 576.250 / 576.250 Physical Exam Narrative: EXAM NARRATIVE: The patient has some hyperactive bowel sounds in areas. He is distended. He has minimal tenderness on exam, however. Data : 05/12/20 05:25 05/12/20 05:25 CT Abd/Pel: Radiologist's impression: CT scan abdomen/pelvis 05/12/2020 IMPRESSION: 1. Multiple dilated small bowel loops containing fluid and air fluid levels are seen proximally. There are loops of small bowel seen in the right lower quadrant there are nondilated. These findings are compatible with a small-bowel obstruction. 2. There diffuse inflammatory changes seen within the cecal mesentery and within the mesenteric fat and fascia the mid sigmoid colon. 3. Diverticulosis of the sigmoid colon. There is some bowel wall thickening seen within the mid sigmoid colon and there is adjacent haziness seen within the sigmoid mesentery. These findings are compatible with diverticulitis. Additionally, there is some free air present within the pelvis adjacent to the sigmoid colon and a perforated diverticulum is likely. 4. The appendix is visualized and is normal in configuration. 5. Fatty infiltration of the liver A&P Assessment and plan (1) Perforation of sigmoid colon due to diverticulitis: In personally reviewing the CAT scan from this morning, I am a little concerned that the patient has not made much progress since being admitted. The radiologist this morning did not see any evidence of intraperitoneal air other than by the sigmoid colon but I think I can still see some small bubbles of air in the peritoneal cavity. In addition, as mentioned, he now appears to have evidence of at least a partial small bowel obstruction secondary to the inflammatory change which seems to be a little bit more prominent on the right side of the abdomen. His exam at present appears to be unimpressive, however, for a worsening abdominal process otherwise. We have discussed further plans as of today. I am obviously going to continue intravenous antibiotics and hope to see the patient improve from his obstructive process. Obviously we are still hoping to avoid any urgent surgery on the colon if at all possible. He agrees with the plan. Status: Acute (2) Small bowel obstruction: As above. Status: Acute Attestations Medical Necessity Statement*: Patient requires continued inpatient care for treatment of a perforated sigmoid colon/small bowel obstruction. Coding Level of Care Code Acute Supervisor Instrument Mechanics for [facility] Diagnoses Perforation of sigmoid colon due to diverticulitis K57.20 Small bowel obstruction K56.609
[2020-05-12] MEDS: metroNIDAZOLE IV 500 MG/100 ML PREMIX 100 MG IV ×2 (12:05→18:06)
[2020-05-12] MEDS: famotidine 20 mg/2 mL INJ IVP ×2 (12:05→22:46)
[2020-05-12] MEDS: heparin 5,000 unit/mL INJ 1 mL 5000 UNIT SUBCUT ×2 (12:05→22:46)
--- NOTE | 2020-05-12 15:39 | PC.NURSE ---
1530: Patient states NG tube is doing more harm than good, then states it has done it's job and he wants it out. This nurse went over why NG tube was needed. Placed call to Dr. Fofana, per doctor patient states he had several BM's this AM, it is okay to remove NG tube if the patient understands that if N/V or ABD pain returns the NG tube will need to be replaced. Went over this information with the patient. Patient states verbal understanding and NG tube was removed at 1530. Patient tolerated well.
--- NOTE | 2020-05-12 15:46 | PC.NURSE ---
1500: Patient complaining that the NG tube was making his throat sore, and it was swelling. Patient denied any SOB, or difficulties breathing. This nurse took pen light to look at patients throat upon inspection it was noted that patient had chew in his mouth. Patient admitted that it was chew and refused for nurse to take chew and put with his chart after nurse went over that [facility] was a tobacco free facility.
--- NOTE | 2020-05-12 19:34 | PC.RESP ---
Smoking Cessation information sent to patient.
--- NOTE | 2020-05-12 21:24 | PC.NURSE ---
Resident says he thinks his belly is getting larger. Measured at 20:10 with result of 51 1/2 inches. Remeasured at 20:25, no change. Re measured at 21:15 again no change Morphine 2 mg IVP for pain 5/10.
[2020-05-13] VITALS (10 sets, daily range): BP systolic 120–145; BP diastolic 71–84; PULSE 68–84; RESP 16–18; TEMP 35.9–36.7; O2SAT 93–96
[2020-05-13 00:34] LABS: Blood Urine Neg (Negative); Glucose Urine UA 1+ (Normal); Ketones Urine 2+ (Negative); Nitrate Urine Negative (Negative); Protein Urine Neg (Negative); Specific Gravity, Urine 1.015 (1.005-1.030); Urine Appearance Clear (CLEAR); Urine Color Yellow (Yellow); pH Urine 5 (5-7)
[2020-05-13 00:35] LABS: Add Urine Microscopic? YES; Bilirubin Urine Neg (Negative); Leukocyte Esterase Urine Trace (Negative); Urobilinogen Urine Norm (Negative)
[2020-05-13 00:36] LABS: Add Urine Culture? Yes; Bacteria Urine 1+ /hpf; Squamous Epithelial Cell Urine 0-4 /hpf (0-5)
[2020-05-13] MEDS: metroNIDAZOLE IV 500 MG/100 ML PREMIX 100 MG IV ×3 (01:05→16:15)
[2020-05-13] MEDS: sodium chlor 0.9% + KCl 20 mEq 20 MEQ/1,000 ML BAG 100 MEQ IV ×2 (02:21→16:15)
[2020-05-13] MEDS: piperacillin-tazobactam 3.375 GM in sodium chloride 0.9% (plus) 50 ML IV ×3 (03:54→21:29)
[2020-05-13 06:20] LABS: Basophils # 0.1 10^3/uL (0.0-0.1); Basophils % 0.5 %; Eosinophils # 0.1 10^3/uL (0.0-0.8); Eosinophils % 0.7 %; Hematocrit 46.4 % (42.0-52.0); Hemoglobin 14.5 g/dL (11.7-16.6); Lymphocytes # 1.2 10^3/uL (0.8-4.8); Lymphocytes % 9.2 %; Mean Corpuscular HGB Conc 31.3 g/dL (30.0-36.0); Mean Corpuscular Hemoglobin 29.3 pg (28.0-34.0); Mean Corpuscular Volume 93.7 fL (80-94); Mean Platelet Volume 11.3 fL (7.4-10.4); Monocytes # 0.7 10^3/uL (0.2-0.9); Monocytes % 5.7 %; Neutrophils # 10.73 10^3/uL (1.8-7.7); Nucleated Red Blood Cells % 0 %; Platelet Count 251 10^3/cmm (130-400); Red Blood Count 4.95 10^6/uL (4.1-5.3); Red Cell Distribution Width 12.4 % (12.1-15.1); White Blood Count 12.9 10^3/uL (4.0-10.0)
--- NOTE | 2020-05-13 06:50 | P.PN_ITS ---
Subjective Subjective: Interval history: The patient insisted on his nasogastric tube being removed yesterday afternoon. He said it was causing him more problems than it was helping. He says he has had multiple bowel movements and is passing flatus this morning. He has had no nausea since the tube was removed. He says his pain level in his abdomen is down to a 1/10. Vitals/I&O/Wt Last Vital Signs Temp 97.7 F 05/13/20 06:50 Pulse 80 05/13/20 06:50 Resp 17 05/13/20 06:50 BP 137/76 05/13/20 06:50 Pulse Ox 94 05/13/20 06:50 05/12/20 05/12/20 05/13/20 14:59 22:59 06:59 Intake Total 676.250 / 2576.250 150 / 2576.250 1750 / 2576.250 Output Total 300 / 1925 775 / 1925 850 / 1925 Balance 376.250 / 651.250 -625 / 651.250 900 / 651.250 Physical Exam Narrative: EXAM NARRATIVE: Bowel sounds are present. The patient's abdomen still seems distended but in talking to him this morning, he says this is normal for him over the past several years. He has no appreciable tenderness on my exam. Data : 05/13/20 04:54 05/12/20 05:25 A&P Assessment and plan (1) Perforation of sigmoid colon due to diverticulitis: The patient once again seems to be improving, although his white blood cell count remains mildly elevated. His pain seems to have resolved and he is now stooling frequently. I told the patient I like to leave him in the hospital least 1 more day to make sure things continue to go well. I will allow him some consistent carbohydrate clear liquids in the interim. Status: Acute (2) Small bowel obstruction: Seems to have resolved. Status: Acute Attestations Medical Necessity Statement*: Patient requires continued inpatient care for treatment of perforated sigmoid diverticulitis and resolving small bowel obstruction. Coding Level of Care Code Acute Title Specialist for [facility] Diagnoses Perforation of sigmoid colon due to diverticulitis K57.20 Small bowel obstruction K56.609
[2020-05-13 07:01] LABS: Anion Gap 17.3 (5-19); Blood Urea Nitrogen 9 mg/dL (6-20); Calcium 8.6 mg/dL (8.5-10.5); Carbon Dioxide 20 mmol/L (22-29); Chloride 99 mmol/L (98-107); Glomerular Filtration Rate 172.6 mL/min (90-130); Glucose 147 mg/dL (65-115); Osmolality Calculated 275 mOsm/kg (285-295); Potassium 4.3 mmol/L (3.5-5.1); Sodium 132 mmol/L (136-145)
[2020-05-13] MEDS: ciprofloxacin 500 mg Tablet PO ×2 (08:09→21:27)
--- NOTE | 2020-05-13 09:04 | PC.NURSE ---
IV RESTART 2ND ATTEMPT TO GIVE PT MEDICATION - NOTED IV PULLED FROM RIGHT AC - DISCONTINUED - NEW IV PLACED TO RIGHT HAND #22 GAUGE - PT STATES - REPEATEDLY - I JUST WANT TO SLEEP - I DONT NEED ALL OF THIS STUFF - WHO TOLD YOU TO DO THIS - EDUCATED PT ON DR REVELES PLAN OF CARE FOR THE DAY
[2020-05-13] MEDS: heparin 5,000 unit/mL INJ 1 mL 5000 UNIT SUBCUT ×2 (11:02→23:37)
[2020-05-13] MEDS: famotidine 20 mg/2 mL INJ IVP ×2 (11:02→23:37)
--- NOTE | 2020-05-13 16:20 | PC.NURSE ---
AMBULATION EDUCATION ROUNDING ASSESSMENT PER THIS NURSE - PT COMPLAINS I'D BE FINE IF MY BELLY WASN'T BLOATED INSTRUCTED PT TO SLOW FLUID INTAKE - PT STATES I KNOW ALSO REEDUCATED PT TO DR REVELES ORDER OF AMBULATION TID - PT STATES I HAVE BEEN UP EDUCATED PER THIS NURSE THAT DR REVELES ORDER REFER TO AMBULATING IN [place] - PT VERBALIZES UNDERSTANDING AND STATES HE WILL BE UP SOON THAT HE'S VERY TIRED
--- NOTE | 2020-05-13 18:37 | PC.NURSE ---
AMBULATED UP IN [place] AMBULATING - FLORENCIO LUGO
[2020-05-14] MEDS: metroNIDAZOLE IV 500 MG/100 ML PREMIX 100 MG IV (01:39)
[2020-05-14 04:00] VITALS: BP 148/79; PULSE 67; RESP 18; TEMP 36.7; O2SAT 95
[2020-05-14] MEDS: piperacillin-tazobactam 3.375 GM in sodium chloride 0.9% (plus) 50 ML IV (04:01)
[2020-05-14] MEDS: sodium chlor 0.9% + KCl 20 mEq 20 MEQ/1,000 ML BAG 100 MEQ IV (04:02)
[2020-05-14 05:03] LABS: Basophils # 0.1 10^3/uL (0.0-0.1); Basophils % 0.6 %; Eosinophils # 0.2 10^3/uL (0.0-0.8); Eosinophils % 1.4 %; Hematocrit 41.8 % (42.0-52.0); Hemoglobin 13.1 g/dL (11.7-16.6); Lymphocytes # 1.6 10^3/uL (0.8-4.8); Mean Corpuscular HGB Conc 31.3 g/dL (30.0-36.0); Mean Corpuscular Hemoglobin 29.4 pg (28.0-34.0); Mean Corpuscular Volume 93.7 fL (80-94); Mean Platelet Volume 10.4 fL (7.4-10.4); Monocytes # 0.7 10^3/uL (0.2-0.9); Monocytes % 5.2 %; Neutrophils # 9.79 10^3/uL (1.8-7.7); Neutrophils % 78.5 %; Nucleated Red Blood Cells % 0 %; Platelet Count 286 10^3/cmm (130-400); Red Blood Count 4.46 10^6/uL (4.1-5.3); Red Cell Distribution Width 12.6 % (12.1-15.1); White Blood Count 12.5 10^3/uL (4.0-10.0)
[2020-05-14 05:28] LABS: Anion Gap 14.9 (5-19); Blood Urea Nitrogen 9 mg/dL (6-20); Calcium 8.4 mg/dL (8.5-10.5); Carbon Dioxide 23 mmol/L (22-29); Chloride 102 mmol/L (98-107); Glomerular Filtration Rate 172.6 mL/min (90-130); Glucose 134 mg/dL (65-115); Osmolality Calculated 283 mOsm/kg (285-295); Potassium 3.9 mmol/L (3.5-5.1); Sodium 136 mmol/L (136-145)
[2020-05-14 06:00] VITALS: PULSE 72
[2020-05-14 06:59] VITALS: BP 147/88; PULSE 70; RESP 18; TEMP 37.2; O2SAT 97
[2020-05-14] MEDS: levalbuterol 0.63 mg/3 mL Neb INHALATION (07:42)
[2020-05-14 07:43] VITALS: PULSE 73; RESP 16; O2SAT 96
--- NOTE | 2020-05-14 07:46 | PC.NURSE ---
Patient refused to get up to a chair for breakfast
[2020-05-14 07:50] VITALS: PULSE 77
--- NOTE | 2020-05-14 07:54 | P.DS_ITS ---
Discharge Providers Date of Admission: 05/09/20 11:41 Date of Discharge: May 14, 2020 Attending Provider at Admission: Ramos Fofana MD Attending Provider at Discharge: Ramos Fofana MD Primary Care Provider: Kavon Pak MD Diagnoses at Discharge Discharge Diagnosis (1) Perforation of sigmoid colon due to diverticulitis: Status: Acute (2) Small bowel obstruction: Status: Acute Reason for Visit Reason for Visit: AB PAIN Hospital Course Hospital Course This is a 54-year-old white male who presented to the [facility] emergency room with a several day history of abdominal pain. The patient actually resides in [place], but his cousin who lives in [place] was with him and brought him to [place]. A CAT scan revealed changes of sigmoid diverticulitis with perforation. The perforation seemed somewhat limited to me, although the patient did have small bubbles of air throughout areas of the peritoneal cavity. We discussed at least an attempt at conservative management to avoid surgery and a probable colostomy. He definitely agreed with this approach. The patient was started on broad-spectrum antibiotics and he slowly improved. His white blood cell count defervesced. He was eventually started on some oral antibiotics (in addition to the ongoing IV medications) in anticipation of discharge, but then ended up having more bloating and abdominal discomfort with some nausea and vomiting. A repeat CAT scan was done and showed some changes of at least a partial small bowel obstruction likely secondary to the inflammatory change in the abdomen. A nasogastric tube was placed but later in the day the patient insisted on it being removed because he thought it was hurting him more than helping him. He says even before the nasogastric tube was placed he had already started having bowel movements and flatus again. Fortunately, he continued passing more flatus and stool and did not have any more nausea. His liquid diet was resumed which he tolerated well. By the following day he had absolutely no abdominal pain although his white blood cell count remained minimally elevated. He was afebrile. He was left in the hospital one more day on intravenous antibiotics and still denied any abdominal pain the following morning. He continued to have some loose stool. He was very anxious to be discharged. I made him aware that his white blood cell count was still mildly elevated but I was intending on sending him home on 7 to 10 days of oral antibiotics, anyway. The patient indicated that he has a home health care service that comes in daily to help him with cleaning, etc. He said there was an RN available to take his blood pressure and watch his vital signs, so we will try to make sure that is in place. I made the patient aware that the follow-up for him with me may be a little complicated, as I do not participate in [place] Medicaid outside of the hospital, which is the insurance that he has. He says he was already intending on getting established with a new physician closer to his home, as he did not want a return to [place] which is where he usually seeks his medical care. I told him I would certainly be available for questions or concerns, but he woul d like to try to follow-up closer to home, anyway. He will be discharged on oral ciprofloxacin and metronidazole with instructions to be seen within the next week for follow-up. I told him he could slowly advance his diet and again, will be available at least by phone if he has any questions or concerns. Physical Exam Narrative: EXAM NARRATIVE: On the day of discharge, the patient's abdomen reveals bowel sounds and I cannot elicit any tenderness on palpation. The patient is afebrile. Discharge Data Data Completed and Pending: Completed Studies During Hospitalization Category Date Time Status CT abdomen pelvis w con* [id number] Stat Cat Scan 05/09/20 10:[address] abdomen pelvis wo con [id number] Stat Cat Scan 05/12/20 05:34 Completed Pending at discharge Category Date Time Status Basic Metabolic P omar AM LABS Lab 05/15/20 04:00 Ordered Complete Blood Co unt w/Auto AM LABS Lab 05/15/20 04:00 Ordered Urine Culture Sta t Lab 05/13/20 00:18 Results Labs from last 24 hours 05/14/20 05/14/20 04:08 04:08 WBC 12.5 H RBC 4.46 Hgb 13.1 Hct 41.8 L MCV 93.7 MCH 29.4 MCHC 31.3 RDW 12.6 Plt Count 286 MPV 10.4 Neut % (Auto) 78.5 Lymph % (Auto) 13.0 Boundary % (Auto) 5.2 Eos % (Auto) 1.4 Baso % (Auto) 0.6 Neut # (Auto) 9.79 H Lymph # (Auto) 1.6 Boundary # (Auto) 0.7 Eos # (Auto) 0.2 Baso # (Auto) 0.1 Nucleated RBC % (a uto) 0 Nucleated RBCs # 0.0 Sodium 136 Potassium 3.9 Chloride 102 Carbon Dioxide 23 Anion Gap 14.9 BUN 9 Creatinine 0.5 L GFR Calculation 172.6 H Glucose 134 H Calculated Osmolal ity 283 L Calcium 8.4 L Vitals: Last Vital Signs Temp 98.9 F 05/14/20 06:59 Pulse 77 05/14/20 07:50 Resp 16 05/14/20 07:43 BP 147/88 05/14/20 06:59 Pulse Ox 96 05/14/20 07:43 Discharge Plan Discharge Patient Disposition: Home Condition: Stable Prescriptions: New ciprofloxacin HCl 500 mg Tablet 500 mg PO BID@0900,2100 Qty: 20 RF: 0 metronidazole 500 mg tablet 500 mg PO TID Qty: 30 RF: 0 Discharge Orders: Discharge Order (Routine); Ordered 05/14/20 Ordered By: Ramos Fofana Discharge Diet: Advance as tolerated Discharge Activity: Increase activity as tolerated Patient Instructions: Ciprofloxacin (By mouth), Metronidazole (By mouth), Inguinal Hernia, Diverticulitis (GEN) Activity Restrictions/Additional Instructions: 1. Follow-up with your primary care physician's office within the next week. Discharge Attestations Time Spent in Discharge Care*: less than 30 min Quality Metrics Clinical Quality Measures During this hospital stay, did patient experience: None Coding Level of Care Code Acute Case Management Social Worker for [facility] Diagnoses Perforation of sigmoid colon due to diverticulitis K57.20 Small bowel obstruction K56.609
[2020-05-14] MEDS: ciprofloxacin 500 mg Tablet PO (08:05)
--- NOTE | 2020-05-14 10:15 | PC.NURSE ---
DISCHARGE INSTRUCTIONS DISCHARGE INSTRUCTIONS GIVEN AT LENGTH PER THIS NURSE - PT STATES YOU'RE PATRICIA I STAYED AND WAITED FOR THESE INSTRUCTIONS - REVIEWED IMPORTANCE OF CARE AND ANTIBOTICS FOR PTS CONDITION - PT RELUCTANTLY VERBALIZES UNDERSTANDING - INFORMATION FAXED TO [facility] - PT UNDERSTANDS HE IS TO CALL [facility] FOR FOLLOW UP IN A WEEK
[2020-05-14 10:28] VITALS: PULSE 77
== END 2020-05-14 10:28 | disposition home or self-care (01) | DRG 392 ==
LOC: ER 11:21 → MEDSURG 12:57
PROVIDERS: Admitting Provider Surgery; Emergency Provider Family Medicine; PCP Family Medicine; Visit Provider Surgery
DX: K57.20 Diverticulitis of large intestine with perforation and abscess without bleeding (principal); K56.609 Unspecified intestinal obstruction, unspecified as to partial versus complete obstruction; K40.20 Bilateral inguinal hernia, without obstruction or gangrene, not specified as recurrent; I10 Essential (primary) hypertension; M19.90 Unspecified osteoarthritis, unspecified site; F17.220 Nicotine dependence, chewing tobacco, uncomplicated; R73.9 Hyperglycemia, unspecified
CPT/HCPCS: 12345; 36415; 36416; 51798; 74176; 74177; 80048; 80053; 81001; 81003; 82962; 83605; 83690; 83735; 84484; 85025; 86140; 87086; 87635; 93005; 94640; 96372; 99285; J1644; J2270; J2405; J2543; J3490; J7614; Q9967; S0030

== ENCOUNTER 2020-05-22 12:33 | Inpatient (IN) | payer MEDICAID, SELFPAY ==
[2020-05-22 12:34] VITALS: BP 112/95; PULSE 87; RESP 14; TEMP 36.9; O2SAT 96; BMI 35.9
--- NOTE | 2020-05-22 12:46 | ED_ITS ---
HPI - Neuro Symptoms/Deficit General: Chief Complaint: Neuro Symptoms/Deficit Stated Complaint: LEFT SIDED WEAKNESS Time Seen by Provider: 05/22/20 12:35 Source: patient Mode of arrival: EMS Limitations: no limitations History of Present Illness: HPI Narrative: 54-year-old male with a history of hypertension started having weakness of his left arm yesterday afternoon. He says that he was going to lift a glass of orange juice when he realized that he could not lift it, over the next 30 to 45 minutes he had worsening weakness and was unable to use the arm at all, and had paresthesia. He decided to go to bed, and when he woke up, it was unchanged. No facial weakness, dysphagia, speech or voice change, lower extremity symptoms, dizziness, vision changes, or recent head injury. He denies any recent sprain or strain. No awkward positioning or neck pain. He has a history of cervical disc disease, status post discectomy and fusion. He does have radicular symptoms on the right upper extremity which are chronic. He was discharged from the hospital on 05/14/2020 after being treated for diverticulitis with perforation, small bowel obstruction. He is still taking Cipro and Flagyl. He denies any fever, nausea or vomiting, but has had a decreased appetite and yesterday did not eat anything after 3 PM. Onset (ago): day(s) Location: left arm History of same: No Relieving factors: none Exacerbating factors: none Context: sudden onset Associated symptoms: Deny chest pain, diaphoresis, headache(s), nausea, vertigo or vomiting Review of Systems General: Reports: 10 or more systems reviewed and unremarkable except in HPI and below Const: Reports: change in appetite and fatigue; Denies: fever(s), chills, body aches or diaphoresis Eyes: Denies: change in vision, blurry vision or blind spots ENMT: Denies: throat pain, uvular edema or hoarseness Card: Denies: chest pain, palpitations, irregular heart rhythm, edema, dyspnea on exertion or orthopnea Resp: Reports: dyspnea, productive cough, wheezing and chest congestion; Denies: pain on inspiration, change in phlegm color or hemoptysis GI: Reports: abdominal pain and bloating; Denies: nausea, vomiting, hematemesis, dysphagia, constipation or melena : Denies: difficulty urinating, dysuria or urinary frequency Musc: Reports: muscle weakness; Denies: back pain or extremity pain Skin/Breast: Denies: rash, pruritus or erythema Neuro: Reports: weakness in extremities and sensory changes; Denies: headache(s), difficulty walking, frequent falls, dizziness, vertigo, confusion, Slurred speech present or difficulty communicating thoughts Endo: Reports: cold intolerance; Denies: polyuria, polydipsia or tired all the time Dinesh/Lymph: Denies: easy bruising, easy bleeding or petechiae PFSH ED PFSH: Medical History Arthritis Bilateral inguinal hernia Diverticulosis Sigmoid diverticulitis with perforation was managed medically with ciprofloxacin and Flagyl Hypertension Perforation of sigmoid colon due to diverticulitis Surgical History History of cervical discectomy Family History (Updated 05/22/20 @ 18:44 by Alberto Dutta MD) Father Cancer Cancer with metastases, cancer unknown Social History Smoking and tobacco status: current some day smoker smokeless tobacco Smokeless tobacco user: chewing tobacco Alcohol intake: current Lives independently: Yes Household members: none Previous occupational history: Disabled secondary to arthritis NIH stroke score NIHSS: Level Of Consciousness - 1a: 0 Level Of Consciousness Questions - 1b: Both Correct Level Of Consciousness Commands - 1c: Both Correct Best Gaze - 2: Normal Visual Moya - 3: No Visual Loss Facial Palsy - 4: Normal Motor Arm Right - 5: No Drift Motor Arm Left - 5: No Effort Against [place] Motor Leg Right - 6: No Drift Motor Leg Left - 6: No Drift Limb Ataxia - 7: Absent Sensory - 8: Mild To Moderate Loss Best Language - 9: No Aphasia Dysarthia - 10: Normal Extinction And Inattention - 11: 0 Score: Total Score: 4 Physical Exam Const: COMMON NORMALS: patient oriented x3 and alert ORIENTATION/CONSCIOUSNESS: Yes oriented to person, Yes oriented to place and Yes oriented to time HENMT: COMMON NORMALS: normocephalic and atraumatic HEAD & SCALP: normal to inspection, normocephalic and atraumatic FACE & SINUS: normal facial exam and face symmetric THROAT: no uvular edema Eye: COMMON NORMALS: Equal, round and reactive pupils present, EOMs intact bilaterally, conjunctivae normal and no scleral icterus GENERAL EYE: ap pearance normal, both eyes and all related structures CONJUNCTIVA: Yes conjunctivae normal Neck/C-Spine: COMMON NORMALS: full ROM, no lymphadenopathy and supple GENERAL: Yes normal visual inspection, Yes trachea midline and No anterior neck swelling CERVICAL SPINE: Yes cervical ROM normal Lymph: LYMPHATIC: no lymphadenopathy noted Chest: COMMONS NORMALS: normal inspection of the chest and normal palpation of entire chest wall Resp: COMMON NORMALS: normal respiratory effort and No retractions EFFORT & INSPECTION: No abnormal respiratory pattern, No tachypneic, No respiratory distress, No labored, Yes Actively coughing and No uses accessory muscles AUSCULTATION: wheezes and bronchial breath sounds Cardio: COMMON NORMALS: regular rate, regular rhythm and S2 normal heart sound present RATE: regular rate RHYTHM: regular rhythm HEART SOUNDS: S2 normal heart sound present GI: COMMON NORMALS: Normal to inspection, nondistended, normoactive bowel sounds present and Soft to palpation INSPECTION: Yes central obesity AUSCULTATION: Yes normoactive bowel sounds PALPATION: Yes Soft to palpation, Yes Tenderness to palpation present (GI) (Mild, diffuse. No rebound or guarding), No Guarding due to palpation present (GI), No Rigid due to palpation and No Ascites present : COMMON NORMALS: Yes no CVA tenderness BLADDER/KIDNEY EXAM: Yes no CVA tenderness Back/Pelvis: COMMON NORMALS: no CVA tenderness and thoracic and lumbar spine normal to inspection Extremity: LEFT UPPER EXTREMITY: Yes upper arm (Radiating pain/paresthesias with palpation of medial upper arm) Left upper arm: Yes palpation and Yes neurovascular exam, Yes lower arm (Wrist drop, flaccid paralysis except for partial strength in thumb) Left lower arm: Yes neurovascular exam and Yes hand & digits (Thumb with some movement, otherwise flaccid paralysis) Left hand and digits: Yes neurovascular exam Neuro: MAKAYLA COMA SCALE: document GCS findings COMMON NORMALS: patient oriented x3 and CN's II-XII intact bilaterally SENSORIUM/ORIENTATION: Yes alert, Yes oriented to person, Yes oriented to place and Yes oriented to time SPEECH: speech normal GAIT: Yes Normal gait present SENSORY EXAM: Yes extremities left light-touch: decreased and sensory level loss detected MOTOR EXAM: Abnormal motor strength present left proximal 1 / 5 , Pronator motor function present, No Tremors during motor activity present, No Asterixis during motor activity present, No Motor fasciculations present and Abnormal muscle tone present flaccid: left upper extremity DEEP TENDON REFLEXES: Left brachioradialis reflex intensity grade: 2+ Skin: COMMON NORMALS: no rashes or lesions noted, no wounds, turgor normal and no jaundice GENERAL SKIN EXAM: no rashes or lesions noted and turgor normal LESIONS: no lesions RASHES: no rashes Course Reevaluation(s): Reevaluation #1: There is no improvement in the proximal muscles of his left arm. He is asking for food, says he has not eaten since yesterday afternoon. Giving him a second p.o. dose of potassium 20 mEq. Time: 15:48 Vital Signs: Vital signs: Vital Signs Temperature 98.5 F 05/22/20 12:34 Pulse Rate 92 05/22/20 15:55 Respiratory Rate 18 05/22/20 15:55 Blood Pressure 156/81 05/22/20 15:55 Pulse Oximetry 96 05/22/20 15:55 MDM - Neuro Symptoms/Deficit MDM Narrative: Medical decision making narrative: 54-year-old male with acute onset flaccid paralysis of his left arm yesterday at approximately 9 PM. No other neuro deficits found on exam or by history. CT and CTA negative for any acute lesions. Critical hypokalemia-oral replacement, 60 mEq Hyponatremia 126, IV fluid resuscitation. He had some proximal muscle improvement, but still no wrist or finger movement. Vascularly intact. Discussed the case with the on-call neurologist at [facility]. He recommends the patient be admitted for stroke work-up. Discussed the case with Dr Dutta, he accepts the admission. Differential Diagnosis: Neuro Differential Diagnosis: Likely peripheral neuropathy and cerebrovascular accident Medical Records: Attestation: I reviewed the patient's medical records. Lab Data: Attestation: I reviewed the patient's lab results. Labs: Lab Results 05/22/20 05/22/20 Range/Units 12:54 12:54 WBC 19.6 H (4.0-10.0) 10^3/ uL RBC 4.71 (4.1-5.3) 10^6/u L Hgb 13.5 (11.7-16.6) g/dL Hct 41.4 L (42.0-52.0) % MCV 87.9 (80-94) fL MCH 28.7 (28.0-34.0) pg MCHC 32.6 (30.0-36.0) g/dL RDW 12.4 (12.1-15.1) % Plt Count 400 (130-400) 10^3/c mm MPV 10.6 H (7.4-10.4) fL Neut % (Auto) 81.6 % Lymph % (Auto) 7.8 % Crane % (Auto) 4.1 % Eos % (Auto) 0.5 % Baso % (Auto) 0.6 % Neut # (Auto) 15.99 H (1.8-7.7) 10^3/u L Lymph # (Auto) 1.5 (0.8-4.8) 10^3/u L Crane # (Auto) 0.8 (0.2-0.9) 10^3/u L Eos # (Auto) 0.1 (0.0-0.8) 10^3/u L Baso # (Auto) 0.1 (0.0-0.1) 10^3/u L Nucleated RBC % (a uto) 0 % Nucleated RBCs # 0.0 /100WBC Sodium 126 L (136-145) mmol/L Potassium 2.7 L* (3.5-5.1) mmol/L Chloride 87 L (98-107) mmol/L Carbon Dioxide 30 H (22-29) mmol/L Anion Gap 11.7 (5-19) BUN 4 L (6-20) mg/dL Creatinine 0.6 L (0.7-1.2) mg/dL GFR Calculation 139.9 H (90-130) mL/min Glucose 219 H (65-115) mg/dL Calculated Osmolal ity 266 L (285-295) mOsm/k g Calcium 8.0 L (8.5-10.5) mg/dL Magnesium 2.4 H (1.7-2.3) mg/dL Total Bilirubin 0.3 (0.15-1.2) mg/dL AST 9 (0-40) U/L ALT < 5 (0-41) U/L Alkaline Phosphata se 74 (40-130) IU/L Total Protein 6.0 L (6.6-8.7) g/dL Albumin 2.7 L (3.5-5.2) g/dL Globulin 3.3 (1.3-4.6) g/dL Discharge Plan Discharge Patient Disposition: Admitted As Inpatient Admit Provider: Alberto Dutta Condition: Stable Coding Level of Care Code ED Change Consultant for roxanna Thomas
--- NOTE | 2020-05-22 13:24 | CT_ITS ---
WS: [id number] CT angio headneck* [id number] REASON FOR EXAM: acutflaccid paralysis and paresthesia of left arm X 16 hours TECHNIQUE: Coronal and sagittal 2-D and MIP reformations. IV CONTRAST ADMINISTERED: 95 mL of Omnipaque 300 TOTAL EXAM DLP: 2518.[address] scans at [facility] use at least one of these dose optimization techniques: automat ed exposure control; mA and/or kV adjustment per patient size (includes targeted exams where dose is matched to clinical indication); or iterative reconstruction. FINDINGS: EXTRACRANIAL: The origin of the great vessels from the aortic arch demonstrate no significant stenosis. The origins of the common carotid arteries are unremarkable. There is moderate stenosis in the origin of the right vertebral artery by calcified plaque. The cervical portions of the common carotid arteries and the vertebral arteries are unremarkable. There is 25-30% stenosis by calcified plaque of the origin of the right and left internal carotid art sung. INTRACRANIAL: The vertebral arteries and the basilar artery at the base of skull are normal. The transition of the internal carotid arteries into the cranial vault are normal. The carotid siphons demonstrate no significant stenosis. The region of the terminus bilaterally is no rmal. The middle and anterior cerebral artery circulations demonstrate no clot, stenosis, aneurysm, or toney riovenous malformation. Normal basilar artery. Posterior cerebral artery circulation demonstrates no clot, stenosis, aneurysm, or arteriovenous malf ormation. The remainder of the posterior fossa circulation is unremarkable. CT/CT angio headneck* [id number] IMPRESSION: Moderate stenosis of the origin of the right vertebral artery. 25-30% stenosis in the origins of the internal carotid arteries bilaterally. No other significant vascular abnormality identified.
--- NOTE | 2020-05-22 13:24 | ECG_ITS ---
[facility] Test Date: 2020-05-22 Pat Name: Kavon Kunz Department: Room: Gender: Male Psychologist [employer]: : 1965 Requested By: Maria Del Carmen Pérez Order Number: [id number] Tawny MD: Juno Muñoz M.D. Measurements Intervals Mobile Rate: 81 P: 59 OH: 173 QRS: 44 QRSD: 158 T: 68 QT: 438 QTc: 511 Interpretive Statements SINUS RHYTHM POSSIBLE LEFT ATRIAL ENLARGEMENT [-0.1mV P WAVE IN V1/V2] LEFT BUNDLE BRANCH BLOCK [120+ ms QRS DURATION, 80+ ms Q/S IN V1/V2, 85+ ms R IN I/aVL/V5/V6] Compared to ECG 05/09/2020 18:44:29 Left bundle-branch block now present Intraventricular conduction delay no longer present Myocardial infarct finding no longer present Electronically Signed On 05-23-2020 22:56:10 CDT by Juno Muñoz M.D. [email or web address] [id number] f
--- NOTE | 2020-05-22 13:42 | CT_ITS ---
WS: [id number] CT head wo con* [id number] REASON FOR EXAM: sudden onset flaccid paralysis LUE IV CONTRAST ADMINISTERED: Noncontrast TOTAL EXAM DLP: 893.[address] scans at [facility] use at least one of these dose optimization techniques: automat ed exposure control; mA and/or kV adjustment per patient size (includes targeted exams where dose is matched to clinical indication); or iterative reconstruction. FINDINGS: Normal bony calvarium. No midline shift or other significant mass effect. Ventricles are normal volume and configuration. No findings of brain parenchymal ischemia or hemorrhage are identified. No extra-axial fluid collecti on or hemorrhage CT/CT head wo con* [id number] IMPRESSION: No acute intracranial abnormality.
[2020-05-22 13:53] LABS: Basophils # 0.1 10^3/uL (0.0-0.1); Basophils % 0.6 %; Eosinophils # 0.1 10^3/uL (0.0-0.8); Eosinophils % 0.5 %; Hematocrit 41.4 % (42.0-52.0); Hemoglobin 13.5 g/dL (11.7-16.6); Lymphocytes # 1.5 10^3/uL (0.8-4.8); Lymphocytes % 7.8 %; Mean Corpuscular HGB Conc 32.6 g/dL (30.0-36.0); Mean Corpuscular Hemoglobin 28.7 pg (28.0-34.0); Mean Corpuscular Volume 87.9 fL (80-94); Mean Platelet Volume 10.6 fL (7.4-10.4); Monocytes # 0.8 10^3/uL (0.2-0.9); Monocytes % 4.1 %; Neutrophils # 15.99 10^3/uL (1.8-7.7); Neutrophils % 81.6 %; Nucleated Red Blood Cells % 0 %; Platelet Count 400 10^3/cmm (130-400); Red Blood Count 4.71 10^6/uL (4.1-5.3); Red Cell Distribution Width 12.4 % (12.1-15.1); White Blood Count 19.6 10^3/uL (4.0-10.0)
[2020-05-22 13:59] LABS: Alanine Aminotransferase < 5 U/L (0-41); Albumin Level 2.7 g/dL (3.5-5.2); Alkaline Phosphatase 74 IU/L (40-130); Anion Gap 11.7 (5-19); Aspartate Amino Transferase 9 U/L (0-40); Blood Urea Nitrogen 4 mg/dL (6-20); Carbon Dioxide 30 mmol/L (22-29); Chloride 87 mmol/L (98-107); Globulin 3.3 g/dL (1.3-4.6); Glomerular Filtration Rate 139.9 mL/min (90-130); Glucose 219 mg/dL (65-115); Magnesium 2.4 mg/dL (1.7-2.3); Osmolality Calculated 266 mOsm/kg (285-295); Sodium 126 mmol/L (136-145); Total Bilirubin 0.3 mg/dL (0.15-1.2)
[2020-05-22 14:03] LABS: Potassium 2.7 mmol/L (3.5-5.1)
[2020-05-22 14:09] VITALS: BP 162/93; PULSE 95; RESP 18; O2SAT 94
[2020-05-22] MEDS: potassium chloride oral liq 20 mEq/15 mL UDC 40 MEQ PO (14:17)
[2020-05-22] MEDS: lactated ringers 1,000 ML 999 ML IV (14:17)
[2020-05-22 14:39] LABS: Slide Review Slide Review Perform
[2020-05-22] MEDS: ondansetron 2 mg/ML SDV 2 mL 4 MG IVP (15:42)
[2020-05-22] MEDS: potassium chloride oral liq 20 mEq/15 mL UDC PO (15:42)
[2020-05-22 15:55] VITALS: BP 156/81; PULSE 92; RESP 18; O2SAT 96
[2020-05-22] MEDS: aspirin 325 mg Tablet PO (18:05)
--- NOTE | 2020-05-22 18:23 | PM.HP ---
Providers/Chief Complaint Admitting Physician: Alberto Dutta MD Primary Care Provider: Kavon Pak MD Chief Complaint: LEFT SIDED WEAKNESS History of Present Illness Kavon Kunz is a 54 year old male who presented today with chief complaint of left arm weakness. Patient is stating that his symptoms started at 9 PM yesterday, he did not pay attention to any acute signs of stroke at that time and he went to bed. Next morning he was experiencing similar complaint of left arm and decided to come to the hospital for the evaluation. He is denying any chest pain, shortness of breath, nausea or vomiting however endorsing abdominal pain. Please note he was diagnosed with sigmoid diverticulitis with perforation for which he was managed medically with ciprofloxacin and Flagyl. He is endorsing that his abdominal pain is getting better however he has been having frequent bowel movements. He is endorsing diarrhea for last 4 to 5 days associated with poor p.o. intake, he did not notice any fever or blood in stool. No active vomiting. No previous history of stroke or TIA, he has never been diagnosed with type 2 diabetes. Neurologist at [facility] recommended TIA work-up with MRI in the morning to rule out stroke and keep him on dual antiplatelet therapy Diagnostics in the ER revealed leukocytosis, hyponatremia, hypokalemia, hyperglycemia, potassium was repleted in the ER, I have requested CT abdomen with contrast to rule out any worsening of his underlying diverticulitis, will request C. difficile panel, start him on normal saline at lower rate along Zosyn Review of Systems Const: Reports: body aches, fatigue and malaise; Denies: fever(s) Eyes: Denies: change in vision ENMT: Denies: throat pain Card: Denies: chest pain Resp: Denies: dyspnea GI: Reports: abdominal pain and diarrhea; Denies: nausea or vomiting : Denies: flank pain Musc: Reports: muscle cramps and muscle weakness; Denies: neck pain or extremity swelling Skin/Breast: Denies: lesions Neuro: Reports: weakness in extremities; Denies: headache(s) Psych: Denies: anxiety Endo: Denies: polyuria Dinesh/Lymph: Denies: easy bruising All/Imm: Denies: urticaria Medications/Allergies Home Medications Medication Instructions Recorded Confirmed Last Taken Type ciprofloxacin HCl 500 mg PO BID@0900,2100 #20 tab 05/14/20 05/22/20 05/22/20 09:00 Rx metronidazole 500 mg PO TID #30 tab 05/14/20 05/22/20 05/22/20 09:00 Rx albuterol sulfate 2 puff INHALATION QID PRN 05/22/20 05/22/20 Unknown History famotidine 40 mg PO DAILY 05/22/20 05/22/20 05/22/20 09:00 History ibuprofen [Advil] 200 - 400 mg PO PRN 05/22/20 05/22/20 Unknown History tramadol 50 mg PO Q4H PRN 05/22/20 05/22/20 05/21/20 History Allergies Allergy/AdvReac Type Severity Reaction Status Date / Time No Known Allergies Allergy Verified 05/22/20 12:59 PFSH Acute PFSH: Medical History Arthritis Bilateral inguinal hernia Diverticulosis Sigmoid diverticulitis with perforation was managed medically with ciprofloxacin and Flagyl Hypertension Perforation of sigmoid colon due to diverticulitis Surgical History History of cervical discectomy Family History (Updated 05/22/20 @ 18:44 by Alberto Dutta MD) Father Cancer Cancer with metastases, cancer unknown Social History Smoking and tobacco status: current some day smoker smokeless tobacco Smokeless tobacco user: chewing tobacco Alcohol intake: current Lives independently: Yes Household members: none Previous occupational history: Disabled secondary to arthritis Vitals/I&O/Wt Last Vital Signs Temp 98.5 F 05/22/20 12:34 Pulse 92 05/22/20 15:55 Resp 18 05/22/20 15:55 BP 156/81 05/22/20 15:55 Pulse Ox 96 05/22/20 15:55 05/22/20 05/22/20 05/22/20 06:59 14:59 22:59 Intake Total 1000 / 1000 Balance 1000 / 1000 Weight last 48 hrs Weight 110.223 kg Physical Exam Narrative: EXAM NARRATIVE: Middle-age male who appears more than stated age Clinically looks dehydrated He was sitting at the bedside when entered the room Awake alert oriented x3 GCS 15 cooperative and pleasant during my evaluation S1, S2 no murmur appreciated Abdomen soft, distended no tenderness or signs of peritonitis on deep palpation no signs of guarding or rigidity Lower extremity no weakness Left upper arm flaccid paralysis, he is not able to do any active motion against gravity ER physician noticed some tenderness in axillary areas were EOMI, PERRLA Right arm and hand good strength No joint swelling No sign of cellulitis Data : 05/22/20 12:54 05/22/20 12:54 A&P Assessment and plan (1) Hypokalemia: Status: Acute (2) Hyponatremia: Status: Acute (3) Dehydration: Status: Acute (4) Hyperglycemia: Status: Acute (5) Acute ischemic stroke: Status: Acute Additional A&P Information Acute ischemic stroke with only presentation of left arm flaccid paralysis Patient has not been diagnosed with type 2 diabetes however he has hyperglycemia We will request A1c level Rule out ischemic stroke with MRI head in the morning as per neurology recommendation We will start him on aspirin Plavix along high-dose statins EKG showing sinus rhythm CTA neck revealed 30% bilateral carotid stenosis If MRI is negative and hemoglobin A1c is above 7 I would suspect diabetes induced mononeuritis complex Will request OT evaluate Dehydration with hyponatremia and hypokalemia and worsening leukocytosis Patient experiencing diarrhea We will rule out C. difficile he has been getting ciprofloxacin and Flagyl We will keep him on Zosyn for now We will get CT abdomen pelvis with contrast to rule out worsening of diverticulitis with perforation, he was discharged on 05/[address] Fofana Acute hyponatremia: I will keep him on normal saline at 30 cc/h with target correction goal 6 mmol per 24 hours however corrected sodium with hyperglycemia is 129 Patient clinically is dehydrated, will check TSH and urine osmolarity calculated serum osmolarity low 266 Full code Consistent carb diet Insulin sliding scale DVT prophylaxis Heparin Attestations Medical Necessity Statement*: Anticipating discharge in less than 48 hours will need stroke work-up currently on IV fluids for hyponatremia, history of mild but prolonged depending on his clinical progress Time Spent in Patient Care: (>than 50% of time spent in counselling and/or direct pt care on unit). 45mins Coding Level of Care Code Acute Belt Measurer for Chg Fwd Diagnoses Hypokalemia E87.6 Hyponatremia E87.1 Dehydration E86.0 Hyperglycemia R73.9 Acute ischemic stroke I63.9
--- NOTE | 2020-05-22 18:28 | CTR_ITS ---
PROCEDURE INFORMATION: Exam: CT Abdomen And Pelvis With Contrast Exam date and time: 05/22/2020 6:36 PM Age: 54 years old Clinical indication: Abdominal pain; Patient HX: Prior exam done today with contrast; Additional info: Sigmoid diverticulitis with perforation TECHNIQUE: Imaging protocol: Computed tomography of the abdomen and pelvis with contrast. Radiation optimization: All CT scans at this facility use at least one of these dose optimization techniques: automated exposure control; mA and/or kV adjustment per patient size (includes targeted exams where dose is matched to clinical indication); or iterative reconstruction. Contrast material: OMNI 300; Contrast volume: 95 ml; Contrast route: INTRAVENOUS (IV); COMPARISON: CT abdomen pelvis wo con [id number] 05/12/2020 6:08 AM RADIATION DOSE METRICS: Total DLP (mGy-cm): 1856.18 FINDINGS: Lungs: Partially calcified circumscribed pulmonary nodule in the posterior right middle lobe. Pleural spaces: Small volume layering right pleural effusion slightly increased from prior. Liver: Normal. No mass. Gallbladder and bile ducts: Normal. No calcified stones. No ductal dilation. Pancreas: Normal. No ductal dilation. Spleen: Normal. No splenomegaly. Adrenal glands: Incidental finding of a small left adrenal gland mass. Right adrenal gland normal. Kidneys and ureters: Normal. No hydronephrosis. Stomach and bowel: Scattered diverticulosis coli. Nonspecific diffuse reactive thickening of small bowel loops. Compared with prior the small bowel loops are more decompressed. Appendix: Unremarkable appearance of the appendix. Intraperitoneal space: Scattered small foci of pneumoperitoneum. Compared with prior imaging there is increasing free fluid in the abdominopelvic cavity. There is a bandlike region of fluid across the anterior lower abdomen which demonstrates loculation. The collection spans at least 21 cm transverse with greatest thickness 5.4 cm AP in the left lower quadrant. Vasculature: Scattered atherosclerotic wall plaque of abdominal aorta. No aneurysm. Lymph nodes: Unremarkable. No enlarged lymph nodes. Urinary bladder: Contrast excretion in the bladder noted with no wall thickening of the bladder apparent. Reproductive: Unremarkable as visualized. Bones/joints: Unremarkable. No acute fracture. Soft tissues: No active abdominopelvic bleeding. CT/CT abdomen pelvis w con* [id number] IMPRESSION: 1. Suspect development of elongated bandlike loculated anterior intraperitoneal abdominal abscess new from prior. 2. Persistent pneumoperitoneum. 3. Diffuse inflammation of abdominal mesentery. 4. Diffuse colonic diverticulosis. A perforated sigmoid diverticulitis is possibly the source of perforation. 5. Small bowel loops are decreased in distention compared to the prior. 6. Small right pleural effusion slightly increased from prior. Radiation Dose CTDIVOL = (mGy): DLP = 1856.18 (mGy-cm)
[2020-05-22 18:32] VITALS: BP 97/59; PULSE 88; RESP 21; O2SAT 94
[2020-05-22] MEDS: iohexol 300 mg/mL 100 mL Btl IV (18:56)
[2020-05-22 19:00] VITALS: BP 116/73; PULSE 88; RESP 18; TEMP 36.6; O2SAT 94
[2020-05-22 19:02] LABS: Procalcitonin 0.42 ng/mL (0-0.5)
[2020-05-22] MEDS: sodium chlor 0.9% + KCl 40 mEq 40 MEQ/1,000 ML BAG 30 MEQ IV (20:16)
[2020-05-22] MEDS: sodium chloride 0.9% 1,000 ML 999 ML IV ×2 (20:16→21:34)
[2020-05-22] MEDS: piperacillin-tazobactam 3.375 GM in sodium chloride 0.9% (plus) 50 ML IV (20:17)
[2020-05-22] MEDS: atorvastatin 40 mg Tablet 80 MG PO (20:18)
[2020-05-22] MEDS: enoxaparin 40 mg/0.4 mL Syringe SUBCUT (20:18)
[2020-05-22 21:36] LABS: Glucose Point of Care 176 mg/dL (70-110)
[2020-05-22 21:59] LABS: Estmated Average Glucose 243; Hemoglobin A1C 10.1 % (4.0-6.0)
[2020-05-22 22:00] LABS: Lactate (Lactic Acid level) 0.9 mmol/L (0.5-2.2)
[2020-05-22 22:07] LABS: Chol HDL Ratio 5.47 mg/dL (1.0-5.00); Cholesterol 104 mg/dL (0-200); HDL Cholesterol 19 mg/dL (60-100); LDL Cholesterol Calculated 49 mg/dL (50-129); LDL HDL Ratio 2.58 RATIO (0.00-3.22); Thyroid Stimulating Hormone 2.36 uIU/mL (0.27-4.20); Triglycerides 179 mg/dL (0-150)
[2020-05-22 22:21] VITALS: PULSE 88; RESP 18; O2SAT 94
[2020-05-23] VITALS (7 sets, daily range): BP systolic 100–150; BP diastolic 59–81; PULSE 80–88; RESP 16–24; TEMP 36.4–37.7; O2SAT 93–97
[2020-05-23] MEDS: piperacillin-tazobactam 3.375 GM in sodium chloride 0.9% (plus) 50 ML IV ×3 (04:50→20:32)
[2020-05-23 06:34] LABS: Basophils # 0.1 10^3/uL (0.0-0.1); Basophils % 0.7 %; Eosinophils # 0.2 10^3/uL (0.0-0.8); Eosinophils % 1.1 %; Hematocrit 39.7 % (42.0-52.0); Hemoglobin 12.5 g/dL (11.7-16.6); Lymphocytes # 1.6 10^3/uL (0.8-4.8); Lymphocytes % 10.6 %; Mean Corpuscular HGB Conc 31.5 g/dL (30.0-36.0); Mean Corpuscular Hemoglobin 29.3 pg (28.0-34.0); Mean Corpuscular Volume 93.2 fL (80-94); Mean Platelet Volume 10.4 fL (7.4-10.4); Monocytes # 0.7 10^3/uL (0.2-0.9); Monocytes % 4.7 %; Neutrophils # 11.59 10^3/uL (1.8-7.7); Neutrophils % 77.4 %; Nucleated Red Blood Cells % 0 %; Platelet Count 428 10^3/cmm (130-400); Red Blood Count 4.26 10^6/uL (4.1-5.3)
[2020-05-23 06:34] LABS: Glucose Point of Care 161 mg/dL (70-110)
[2020-05-23 06:41] LABS: Blood Urea Nitrogen 5 mg/dL (6-20); Calcium 7.8 mg/dL (8.5-10.5); Carbon Dioxide 32 mmol/L (22-29); Chloride 95 mmol/L (98-107); Glomerular Filtration Rate 139.9 mL/min (90-130); Glucose 144 mg/dL (65-115); Osmolality Calculated 280 mOsm/kg (285-295); Sodium 135 mmol/L (136-145)
[2020-05-23 07:39] LABS: Slide Review Slide Review Perform
[2020-05-23] MEDS: clopidogrel 75 mg Tablet PO (09:03)
[2020-05-23] MEDS: aspirin 81 mg EC Tablet PO (09:03)
--- NOTE | 2020-05-23 10:05 | PC.OT ---
OT EVALUATION ATTEMPTED; DURING EVALUATION NURSE ENTERS STATING THAT THE PATIENT IS TO GO TO MRI RIGHT NOW. OT EVALUATION TO BE ATTEMPTED AGAIN LATER.
[2020-05-23 11:20] LABS: Glucose Point of Care 232 mg/dL (70-110)
--- NOTE | 2020-05-23 12:00 | MR_ITS ---
WS: [id number] MRI HEAD WITHOUT CONTRAST TECHNIQUE: Sagittal T1, T2 axial, T2 axial FLAIR, axial and coronal T1 images, axial susceptibility w eighted imaging, axial diffusion weighted images, and coronal T2 images were obtained. CLINICAL INFORMATION: flaccid paralysis rt arm COMPARISON: CT May 22, 2020 FINDINGS: Multiple foci of restricted diffusion involving the right frontoparietal junction and parietal cortex consistent with acute ischemia. Mild associated edema. Mild localized mass effect. No midline shift. A few additional tiny punctate foci involving the right parietal cortex dorsally. In addition, a few tiny punctate foci of restricted diffusion involving the right parasagittal occipital lobe and right periventricular parietal white matter. Minimal small vessel changes. Moderate parenchymal volume loss. Normal posterior fossa. Normal vascul ar flow voids at the skull base. No extra-axial fluid collections. Paranasal sinuses and mastoid air cells are well aerated. Benign partially empty sella. No hemosiderin on susceptibly weighted images. Normal optic chiasm and pituitary infundibulum. Mild symmetric atrophy temporal lobes and hippocampal formations. MR/MR head wo con* [id number] IMPRESSION: 1. Patchy foci of restricted diffusion involving the right frontoparietal junc tion and parietal lobe consistent with acute ischemia. Mild associated edema. M ild localized mass effect. No midline shift. 2. A few additional punctate foci of acute ischemia involving the right parasa gittal occipital lobe and right deep parietal white matter. 3. Minimal small vessel changes. Moderate parenchymal volume loss. 4. No hemosiderin on susceptibly weighted images. Attempted Alberto Dutta MD at 05/23/2020 1:36 PM. Not available today Message left for covering physician Dr. Gray 05/23/2020 1:45 PM
--- NOTE | 2020-05-23 12:53 | PC.CHAP ---
Pastoral Care Encounter/Spiritual Assessment Type of Contact [] Declined natural gas basis trader visit [] Patient/Family/Request visit [] Outpatient visit [] Follow-up visit [] Physician referral [] Code/Alert [xx] Routine visit [] Staff referral [] Actively dying [] Patient sleeping [] Family support [] [] Out of room [] Palliative care [] [] Receiving care in room [] Pre-surgical visit [] Trauma [] Long length of stay [] ICU visit [] Other: Relational/Emotional Strength [xx] Patient feels connected with others/family/visitors/staff [] Distress [] Loneliness/isolation [] Abandonment Spirituality of Patient [] Person of María [] Attends Anglican of their María [xx] Believes in Prayer [] Reads Bible or Nondenominational materials [] There are Spiritual issues to be addressed Knock Up Assembler Interventions [xx] Prayer [xx] Active listening [xx] Non-anxious presence [] Spiritual/emotional support [] Crisis/trauma care [] Spiritual counseling [] Bereavement support [] Provided bereavement packet [] Provided Bible/devotional materials [] Provided toy/stuffed animal, coloring book to patient or family member [] Provided Communion [] Anointing/[place] [] Salvation [xx] Completed spiritual assessment [] Other: Impact on Illness or Injury [] Angry [] Fearful [xx] Anxious [] Often cries [] Exhaustion [] Unable to work [] Unable to attend adventist [] Unable to walk/stand [] Unable to read [] Unable to drive [] Unable to eat/drink [] Unable to sleep [] Unable to be with family [] Patient intubated [] Other: Summary Patient stated he is not feeling well and is worried about what happened to his arm. He stated doctors have just scheduled a series of tests to be conducted rest of day. He is very anxious to know results and what treatment will be done. Patient asked natural gas basis trader to help him put shirt on one arm and over other shoulder as he was chilled. Knock Up Assembler complied. Time spent with patient 8 minutes
--- NOTE | 2020-05-23 13:36 | P.PN_ITS ---
Subjective Subjective: Interval history: MRI done, results awaited, no new complaints Medications: Reviewed: Yes Vitals/I&O/Wt Last Vital Signs Temp 97.8 F 05/23/20 12:00 Pulse 80 05/23/20 12:00 Resp 17 05/23/20 12:00 BP 115/74 05/23/20 12:00 Pulse Ox 95 05/23/20 12:00 05/22/20 05/23/20 05/23/20 22:59 06:59 14:59 Intake Total 3000 / 3000 50 / 3050 490 / 490 Output Total 0 / 0 400 / 400 Balance 3000 / 3000 -350 / 2650 490 / 490 Weight last 48 hrs Weight 110.223 kg Physical Exam Narrative: EXAM NARRATIVE: GEN: Awake, alert and oriented, no acute distress CVS: S1S2 N RS: CTA B/L Abd: Soft, nt/nd , bs+ Data : 05/23/20 05:02 05/23/20 05:02 A&P Assessment and plan (1) Hypokalemia: Status: Acute (2) Hyponatremia: Status: Acute (3) Dehydration: Status: Acute (4) Hyperglycemia: Status: Acute (5) Acute ischemic stroke: Status: Acute Additional A&P Information Acute ischemic stroke with left arm flaccid paralysis Patient has not been diagnosed with type 2 diabetes however he has hyperglycemia A1c level at 10 MRI taken this morning, pending Continue aspirin Plavix along high-dose statins EKG showing sinus rhythm CTA neck revealed 30% bilateral carotid stenosis Dehydration with hyponatremia and hypokalemia and worsening leukocytosis Patient experiencing diarrhea We will rule out C. difficile he has been getting ciprofloxacin and Flagyl We will keep him on Zosyn for now CT abdomen with Suspect development of elongated bandlike loculated anterior intraperitoneal abdominal abscess new from prior. and persistent pneumoperitoneum. Surgery consult NPO for now Acute hyponatremia:Improving, likely secondary to dehydration Full code Change to NPO sttaus given intraabdominal abscess Insulin sliding scale DVT prophylaxis : loveox Change to inpatient status given development of intra abdominal abscess, needs iv abx and iv hydration , pending MRI Attestations Medical Necessity Statement*: change to inpatient, willl need >2midnight as noted above Coding Level of Care Code Acute Chair Car Driver for [facility] Fwd Diagnoses Hypokalemia E87.6 Hyponatremia E87.1 Dehydration E86.0 Hyperglycemia R73.9 Acute ischemic stroke I63.9
--- NOTE | 2020-05-23 14:14 | PM.CONSULT ---
Providers/Reason For Consult Consulting Physican/Specialty*: General Surgery Ramos Fofana MD Reason for Consult*: Follow-up perforated diverticulitis. Attending Physician: Ayala Gray MD Primary Care Provider: Kavon Pak MD History of Present Illness History of Present Illness Kavon Kunz is a 54 year old male who I saw during hospitalization a couple of weeks ago for what appeared to be perforated sigmoid diverticulitis (as he stated he had a normal colonoscopy in [place] otherwise only several months ago). He was kept on broad-spectrum antibiotics and symptomatically improved, although his CAT scan continued to show some changes that still were of concern. The patient eventually became somewhat adamant about going home. He went home on oral antibiotics and said he has continued to do very well. He says his bowel habits have improved and his bowel movements are becoming solid again. He says he has minimal abdominal discomfort and has not had any fevers or chills, etc. He was intending to follow-up with physicians in [place], where he is from, but I am not sure that has happened as yet. The night before last, however, he apparently noticed his left arm was going . He has been diagnosed with a CVA. Dr. Gray repeated a CAT scan of his abdomen to follow-up his perforation and he now has some fluid collections in the lower abdomen. His white blood cell count remains mildly elevated, as well. Review of Systems General: Reports: 10 or more systems reviewed and unremarkable except in HPI and below Const: Denies: fever(s) or chills GI: Reports: abdominal pain (Very little ) and change in bowel habits ( Becoming more normal now ) Meds/Allergies Home Medications and Allergies Home Medications Medication Instructions Recorded Confirmed Last Taken Type ciprofloxacin HCl 500 mg PO BID@0900,2100 #20 tab 05/14/20 05/22/20 05/22/20 09:00 Rx metronidazole 500 mg PO TID #30 tab 05/14/20 05/22/20 05/22/20 09:00 Rx albuterol sulfate 2 puff INHALATION QID PRN 05/22/20 05/22/20 Unknown History famotidine 40 mg PO DAILY 05/22/20 05/22/20 05/22/20 09:00 History ibuprofen [Advil] 200 - 400 mg PO PRN 05/22/20 05/22/20 Unknown History tramadol 50 mg PO Q4H PRN 05/22/20 05/22/20 05/21/20 History Allergies Allergy/AdvReac Type Severity Reaction Status Date / Time No Known Allergies Allergy Verified 05/22/20 12:59 Current Medications Current Medications Generic Name Dose Route Start Last Admin Trade Name Freq PRN Reason Stop Dose Admin Aspirin 81 mg 05/23/20 09:00 05/23/20 09:03 Aspirin 81 Mg Ec Tablet PO 81 mg DAILY RAKESH Administration Atorvastatin Calcium 80 mg 05/22/20 21:00 05/22/20 20:18 Atorvastatin 40 Mg Tablet PO 80 mg BEDTIME RAKESH Administration Clopidogrel Bisulfate 75 mg 05/23/20 09:00 05/23/20 09:03 Clopidogrel 75 Mg Tablet PO 75 mg DAILY RAKESH Administration Enoxaparin Sodium 40 mg 05/22/20 20:00 05/22/20 20:18 Enoxaparin 40 Mg/0.4 Ml Syringe SUBCUT 40 mg Q24H RAKESH Administration Piperacillin Sod/Tazobactam 50 mls @ 12.5 mls/hr 05/22/20 20:00 05/23/20 12:53 Sod 3.375 gm/ Sodium Chloride IV 12.5 mls/hr Q8H RAKESH Administration Protocol Potassium Chloride/Sodium Chloride 40 meq in 1,000 mls @ 30 mls/hr 05/22/20 19:30 05/22/20 20:16 Sodium Chlor 0.9% + Kcl 40 Meq IV 30 mls/hr .Q24H RAKESH Administration Insulin Aspart 0 unit 05/22/20 21:00 05/23/20 12:53 Insulin Aspart 100 Unit/1 Ml SUBCUT 8 unit WM&BEDTIME RAKESH Administration Protocol PFSH Acute PFSH: Medical History Arthritis Bilateral inguinal hernia Diverticulosis Sigmoid diverticulitis with perforation was managed medically with ciprofloxacin and Flagyl Hypertension Perforation of sigmoid colon due to diverticulitis Surgical History History of cervical discectomy Family History (Updated 05/22/20 @ 18:44 by Alberto Dutta MD) Father Cancer Cancer with metastases, cancer unknown Social History Smoking and tobacco status: current some day smoker smokeless tobacco Smokeless tobacco user: chewing tobacco Alcohol intake: current Lives independently: Yes Household members: none Previous occupational history: Disabled secondary to arthritis Vitals/I&O/Wt Last Vital Signs Temp 97.8 F 05/23/20 12:00 Pulse 80 05/23/20 12:00 Resp 17 05/23/20 12:00 BP 115/74 05/23/20 12:00 Pulse Ox 95 05/23/20 12:00 05/22/20 05/23/20 05/23/20 22:59 06:59 14:59 Intake Total 3000 / 3050 50 / 3050 490 / 490 Output Total 0 / 400 400 / 400 Balance 3000 / 2650 -350 / 2650 490 / 490 Weight last 48 hrs Weight 243 lb Physical Exam Narrative: EXAM NARRATIVE: The patient was seen in his hospital room. He obviously has trouble moving his left upper extremity, but otherwise does not seem to be in any distress. The pupils are equal. No carotid bruits are heard. The lungs are clear anteriorly. The heart seems regular. The abdomen remains obese and somewhat firm throughout but the patient has no appreciable tenderness on my exam. The extremities reveal no edema. Data Imaging^: CT Abd/Pel: Radiologist's impression: CT abdomen/pelvis 05/23/2020 IMPRESSION: 1. Suspect development of elongated bandlike loculated anterior intraperitoneal abdominal abscess new from prior. 2. Persistent pneumoperitoneum. 3. Diffuse inflammation of abdominal mesentery. 4. Diffuse colonic diverticulosis. A perforated sigmoid diverticulitis is possibly the source of perforation. 5. Small bowel loops are decreased in distention compared to the prior. 6. Small right pleural effusion slightly increased from prior. A&P Assessment and plan (1) Perforation of sigmoid colon due to diverticulitis: The patient symptomatically seems to be getting better, although his CAT scan still shows areas of concern and now shows a couple fluid collections in the lower abdomen along the anterior abdominal wall (along with the previous small loculated area of air, although I think this last finding has improved since his last CAT scan). These appear to be amenable to percutaneous drainage, but may very well not communicate with each other. Although I am not certain that they are infectious, I would prefer to have this fluid gone. With the patient's recent CVA, we would obviously like to avoid an exploration if at all possible. Percutaneous drainage would allow for cultures, and I feel is the best modality in attempting to keep the patient out of the operating room for a larger procedure, particularly while he has a need to be on anticoagulation. Unfortunately, we do not have an interventionalist in radiology who can help us out with this. His medical/surgical issues have now become quite complicated; I would recommend arranging transfer to a facility with a higher level of care for further management. Status: Acute Consult Attestations Medical Necessity Statement: See admitting service's notation. Coding Level of Care Code Acute Prior Authorization Nurse for [facility] Fwd Diagnoses Perforation of sigmoid colon due to diverticulitis K57.20
[2020-05-23] MEDS: potassium chloride ER 20 mEq Tablet 60 MEQ PO (15:34)
[2020-05-23 17:16] LABS: Glucose Point of Care 131 mg/dL (70-110)
--- NOTE | 2020-05-23 19:30 | USCV_ITS ---
Kavon Kunz Age: 54 Gender: M : 1965 Exam Date: 05/23/2020 05:36 Ordering Phys: Alberto Dutta MD Technologist: Heather Mccann Exam Location: [facility] [place] Indication: TIA BP: 120 / 71 HR: Rhythm: Sinus Technical Quality: Adequate MEASUREMENTS (Male / Female) Normal Values 2D ECHO LV Diastolic Diameter PLAX 4.3 cm 4.2 - 5.9 / 3.9 - 5.3 cm LV Systolic Diameter PLAX 2.7 cm LV Chamber Size 4.3 cm IVS Diastolic Thickness 1.5 cm 0.6 - 1.0 / 0.6 - 0.9 cm IVS Systolic Thickness 1.7 cm LVPW Diastolic Thickness 1.6 cm 0.6 - 1.0 / 0.6 - 0.9 cm LVPW Systolic Thickness 1.7 cm RV Chamber Size 3.1 cm LVOT Diameter 2.0 cm LV Ejection Fraction 2D Teich 67.2 % LV Ejection Fraction MOD 2C 66.6 % LV Ejection Fraction 2C AL 67.2 % LA Diameter 3.5 cm LA Width 3.1 cm LA Height 4.4 cm RA Width 3.4 cm RA Height 4.2 cm Aorta at Sinotubular Diameter 2.8 cm M-MODE LV Diastolic Diameter MM 5.2 cm 4.2 - 5.9 / 3.9 - 5.3 cm LV Systolic Diameter MM 3.6 cm LV Ejection Fraction MM Teich 58.1 % IVS Diastolic Thickness MM 1.0 cm 0.6 - 1.0 / 0.6 - 0.9 cm IVS Systolic Thickness MM 1.8 cm LVPW Diastolic Thickness MM 1.1 cm 0.6 - 1.0 / 0.6 - 0.9 cm LVPW Systolic Thickness MM 1.6 cm RV Diastolic Diameter MM 2.8 cm Aortic Annulus Diameter 3.8 cm LA Ao Ratio MM 1.0 MV E Point Septal Separation 0.4 cm DOPPLER AV Peak Velocity 150.0 cm/s LVOT Peak Velocity 126.0 cm/s AV Area Cont Eq vti 3.0 cm squared AV Area Cont Eq pk 2.7 cm squared MV Area PHT 4.2 cm squared Mitral E to A Ratio 1.0 MV E' Velocity 48.5 cm/s Mitral E to MV E' Ratio 8.5 Mitral E to LV E' Lateral Ratio 9.7 Mitral E to LV E' Septal Ratio 7.5 TR Peak Velocity 131.3 cm/s TR Peak Gradient 6.9 mmHg TR Mean Velocity 99.3 cm/s TR Mean Gradient 4.3 mmHg TR Velocity Time Integral 34.0 cm TV Peak E Velocity 63.0 cm/s Right Atrial Pressure 3.0 mmHg Pulmonary Artery Systolic Pressu 9.9 mmHg PV Peak Velocity 69.0 cm/s RV Acceleration Time 0.1 s RV Ejection Time 0.3 s RV AcT/ET 0.3 FINDINGS Left Ventricle Normal left ventricular cavity size. Normal left ventricular systolic function. Left ventricular ejection fraction is estimated at 55 %. No diagnostic regional wall motion abnormalities. Abnormal septal motion consistent with conduction abnormality. Normal diastolic function. Right Ventricle Normal right ventricular size and systolic function. Right ventricular systolic pressure 9.9 mmHg. Right Atrium Normal right atrial size. Left Atrium Normal left atrial size. Mitral Valve Mildly thickened mitral valve. No mitral valve stenosis. No significant mitral valve regurgitation. Aortic Valve Aortic valve not well visualized. Probably trileaflet aortic valve with no aortic valve stenosis. No aortic valve regurgitation. Tricuspid Valve Structurally normal tricuspid valve. Trace tricuspid valve regurgitation. Pulmonic Valve Pulmonic valve not well visualized. Pericardium No pericardial effusion. Aorta Normal-sized aortic root. CONCLUSIONS 1. Normal left ventricular cavity size and systolic function. Left ventricular ejection fraction is estimated at 55 %. No diagnostic regional wall motion abnormalities. Normal diastolic function. 2. Normal right ventricular size and systolic function. 3. No significant valvular abnormality. 4. No cardioembolic source of stroke based on this technically difficult study. MDAISON is recommended if clinically indicated. Marely Eisenberg MD (Electronically Signed) Final Date: 23 May 2020 12:34 S
[2020-05-23] MEDS: atorvastatin 40 mg Tablet 80 MG PO (20:35)
[2020-05-23] MEDS: enoxaparin 40 mg/0.4 mL Syringe SUBCUT (20:35)
[2020-05-23 21:13] LABS: Glucose Point of Care 112 mg/dL (70-110)
[2020-05-24 00:24] VITALS: BP 122/66; PULSE 85; RESP 18; TEMP 37; O2SAT 95
[2020-05-24 04:00] VITALS: BP 117/67; PULSE 84; RESP 20; TEMP 37.2; O2SAT 93
[2020-05-24] MEDS: piperacillin-tazobactam 3.375 GM in sodium chloride 0.9% (plus) 50 ML IV (04:27)
[2020-05-24 06:18] LABS: Basophils # 0.1 10^3/uL (0.0-0.1); Basophils % 0.7 %; Eosinophils # 0.2 10^3/uL (0.0-0.8); Eosinophils % 1.6 %; Hemoglobin 12.1 g/dL (11.7-16.6); Lymphocytes # 1.6 10^3/uL (0.8-4.8); Lymphocytes % 11.1 %; Mean Corpuscular Hemoglobin 28.3 pg (28.0-34.0); Mean Corpuscular Volume 91.3 fL (80-94); Mean Platelet Volume 10.2 fL (7.4-10.4); Monocytes # 0.7 10^3/uL (0.2-0.9); Monocytes % 4.9 %; Neutrophils # 11.38 10^3/uL (1.8-7.7); Neutrophils % 77.9 %; Nucleated Red Blood Cells % 0 %; Platelet Count 460 10^3/cmm (130-400); Red Blood Count 4.27 10^6/uL (4.1-5.3); Red Cell Distribution Width 12.9 % (12.1-15.1); White Blood Count 14.6 10^3/uL (4.0-10.0)
[2020-05-24 06:38] LABS: Glucose Point of Care 120 mg/dL (70-110)
[2020-05-24 06:43] LABS: Alanine Aminotransferase < 5 U/L (0-41); Albumin Level 2.6 g/dL (3.5-5.2); Alkaline Phosphatase 72 IU/L (40-130); Anion Gap 12.6 (5-19); Aspartate Amino Transferase 12 U/L (0-40); Blood Urea Nitrogen 5 mg/dL (6-20); Calcium 8.4 mg/dL (8.5-10.5); Carbon Dioxide 29 mmol/L (22-29); Chloride 98 mmol/L (98-107); Globulin 3.3 g/dL (1.3-4.6); Glomerular Filtration Rate 172.6 mL/min (90-130); Glucose 119 mg/dL (65-115); Osmolality Calculated 280 mOsm/kg (285-295); Potassium 3.6 mmol/L (3.5-5.1); Sodium 136 mmol/L (136-145); Total Bilirubin 0.4 mg/dL (0.15-1.2); Total Protein 5.9 g/dL (6.6-8.7)
[2020-05-24 07:33] VITALS: BP 116/72; PULSE 74; RESP 17; TEMP 36.1; O2SAT 95
[2020-05-24 07:39] LABS: Slide Review Slide Review Perform
[2020-05-24 08:40] VITALS: PULSE 87; RESP 20; O2SAT 97
--- NOTE | 2020-05-24 09:07 | PM.DCS ---
Discharge Providers Date of Admission: 05/23/20 13:56 Date of Discharge: May 24, 2020 Attending Provider at Admission: Alberto Dutta MD Attending Provider at Discharge: David Mathias DO Primary Care Provider: Kavon Pak MD Diagnoses at Discharge Discharge Diagnosis (1) Perforation of sigmoid colon due to diverticulitis: Status: Acute (2) Acute ischemic stroke: Status: Acute (3) Hyperglycemia: Status: Acute (4) Dehydration: Status: Acute (5) Hypokalemia: Status: Acute Reason for Visit Reason for Visit: LEFT SIDED WEAKNESS Hospital Course Hospital Course Pt admitted for L arm weakness. His presentation was subacute. MRI brain showed right parietal stroke with other punctate lesions inferior to larger stroke. Carotids showed 30% stenosis bilaterally He also had abdominal pain after being treated medically for diverticulitis. He was placed on empiric antibiotics. CT abdomen showed a large intra-abdominal abscess - suspected diverticular perforation. With subacute stroke requiring DAPT, it was felt that drainage of abscess best course of action. Transfer arrangements made with [facility] and they accept him this am. Physical Exam Narrative: EXAM NARRATIVE: In general patient appears alert and oriented no acute distress Respiratory: patient has diffuse inspiratory and expiratory wheezing Heart: regular rate and rhythm normal S1-S2 GI: abdomen is distended soft minimal tenderness with soft palpation. Extremities: no clubbing cyanosis or edema Neuro: NIHSS is 2 for left arm weakness. Discharge Data Data Completed and Pending: Completed Studies During Hospitalization Category Date Time Status CT abdomen pelvis w con* [id number] Stat Cat Scan 05/22/20 18:[address] angio headneck * [id number] Urge nt Cat Scan 05/22/20 13:[address] head wo con* [id number] Urgent Cat Scan 05/22/20 13:42 Completed MR head wo con* [id number] Routine MRI 05/23/20 12:00 Completed CV echo complete* [id number] Routine Ultrasound 05/23/20 19:30 Completed Pending at discharge Category Date Time Status Clostridioides Di fficile PCR Routin e Lab 05/22/20 19:30 Uncollected Osmolality Urine Routine Lab 05/22/20 19:30 Uncollected Cdiff is negative Labs from last 24 hours 05/24/20 05/24/20 05/24/20 06:31 04:55 04:55 WBC 14.6 H RBC 4.27 Hgb 12.1 Hct 39.0 L MCV 91.3 MCH 28.3 MCHC 31.0 RDW 12.9 Plt Count 460 H MPV 10.2 Neut % (Auto) 77.9 Lymph % (Auto) 11.1 [place] % (Auto) 4.9 Eos % (Auto) 1.6 Baso % (Auto) 0.7 Neut # (Auto) 11.38 H Lymph # (Auto) 1.6 [place] # (Auto) 0.7 Eos # (Auto) 0.2 Baso # (Auto) 0.1 Nucleated RBC % (a uto) 0 Nucleated RBCs # 0.0 Sodium 136 Potassium 3.6 Chloride 98 Carbon Dioxide 29 Anion Gap 12.6 BUN 5 L Creatinine 0.5 L GFR Calculation 172.6 H Glucose 119 H POC Glucose 120 H Calculated Osmolal ity 280 L Calcium 8.4 L Total Bilirubin 0.4 AST 12 ALT < 5 Alkaline Phosphata se 72 Total Protein 5.9 L Albumin 2.6 L Globulin 3.3 05/23/20 05/23/20 05/23/20 21:09 16:08 11:15 WBC RBC Hgb Hct MCV MCH MCHC RDW Plt Count MPV Neut % (Auto) Lymph % (Auto) [place] % (Auto) Eos % (Auto) Baso % (Auto) Neut # (Auto) Lymph # (Auto) [place] # (Auto) Eos # (Auto) Baso # (Auto) Nucleated RBC % (a uto) Nucleated RBCs # Sodium Potassium Chloride Carbon Dioxide Anion Gap BUN Creatinine GFR Calculation Glucose POC Glucose 112 H 131 H 232 H Calculated Osmolal ity Calcium Total Bilirubin AST ALT Alkaline Phosphata se Total Protein Albumin Globulin Vitals: Last Vital Signs Temp 96.9 F L 05/24/20 07:33 Pulse 87 05/24/20 08:40 Resp 20 H 05/24/20 08:40 BP 116/72 05/24/20 07:33 Pulse Ox 97 05/24/20 08:40 Discharge Plan Discharge Patient Disposition: Xfer Short-Term Hosp Condition: Stable Prescriptions: No Action ciprofloxacin HCl 500 mg Tablet 500 mg PO BID@0900,2100 Qty: 20 RF: 0 metronidazole 500 mg tablet 500 mg PO TID Qty: 30 RF: 0 famotidine 40 mg tablet 40 mg PO DAILY RF: 0 tramadol 50 mg tablet 50 mg PO Q4H PRN (Reason: Pain) RF: 0 Advil 200 mg Tablet 200 - 400 mg PO PRN RF: 0 albuterol sulfate 90 mcg/actuation HFA aerosol inhaler 2 puff INHALATION QID PRN (Reason: Shortness Of Breath) RF: 0 Discharge Orders: Discharge Order (Routine); Ordered 05/24/20 Ordered By: David Mathias Referrals: Kavon Pak MD [Primary Care Provider] - Discharge Diet: As Directed Discharge Activity: Limit activity as instructed Discharge Attestations Time Spent in Discharge Care*: greater than 30 min Quality Metrics Clinical Quality Measures During this hospital stay, did patient experience: Stroke Contraindication to Antithrombotic: Antithrombotic prescribed Contraindication to Anticoagulation: Overlap treatment not indicated Contraindication to Statin: Statin prescribed Contraindication to antithrombotic day 2: Antithrombotic given Contraindication to tPA: Treatment not indicated Onset of Symptoms Date: 05/21/20 Onset of Symptoms Time: 13:30 Symptom Onset Unknown: No Reason stroke education not provided: Stroke education provided to patient Pt Provided Written Stroke Discharge Instructions: Patient given written information Rehab services assessed: Other Reason rehab assessment not done: Other Coding Level of Care Code Acute [facility] DC note Diagnoses Perforation of sigmoid colon due to diverticulitis K57.20 Acute ischemic stroke I63.9 Hyperglycemia R73.9 Dehydration E86.0 Hypokalemia E87.6
[2020-05-24] MEDS: sodium chlor 0.9% + KCl 40 mEq 40 MEQ/1,000 ML BAG 30 MEQ IV (09:35)
[2020-05-24 10:38] VITALS: PULSE 87; RESP 20; O2SAT 97
--- NOTE | 2020-05-24 10:40 | PC.NURSE ---
PT READY FOR TRANSFER. PLANS WERE DISCUSSED LAST NIGHT WITH PT, HIS SON (PER PT'S CONSENT), THIS NURSE, SNACK BAR ATTENDANT NURSE Rui TORRES RN, AND THE DOCTOR (VIA PHONE). ALL QUESTIONS WERE ANSWERED, NO CONCERNS WERE NOTED OR STATED AT THAT TIME. REPORT WAS CALLED TO MAN MCKEE RN AT [facility]. A NEW BAG OF FLUIDS WERE HUNG. PT'S BELONGINGS WERE GATHERED AND GIVEN TO AMBULANCE PERSONNEL. PT SAFELY MOVED TO STRETCHER AND OUT OF ROOM.
--- NOTE | 2020-05-24 11:02 | PC.OT ---
Attempted to see patient for occupational therapy evaluation. Patient has been transferred to another facility.
--- NOTE | 2020-05-26 13:36 | PC.RESP ---
Smoking Cessation information sent to patient.
== END 2020-05-24 09:45 | disposition short-term general hospital (02) | DRG 65 ==
LOC: ER 13:34 → MEDSURG 18:22
PROVIDERS: Student in an Organized Health Care Education/Training Program; Admitting Provider Internal Medicine; Emergency Provider Family Medicine; PCP Family Medicine; Visit Provider Internal Medicine
DX: I63.9 Cerebral infarction, unspecified (principal); K57.20 Diverticulitis of large intestine with perforation and abscess without bleeding; G81.94 Hemiplegia, unspecified affecting left nondominant side; E87.1 Hypo-osmolality and hyponatremia; E87.6 Hypokalemia; E86.0 Dehydration; R73.9 Hyperglycemia, unspecified; M19.90 Unspecified osteoarthritis, unspecified site; I10 Essential (primary) hypertension; F17.220 Nicotine dependence, chewing tobacco, uncomplicated; R19.7 Diarrhea, unspecified; R29.704 NIHSS score 4
CPT/HCPCS: 12345; 36415; 36416; 70450; 70496; 70498; 70551; 74177; 80048; 80053; 80061; 82962; 83036; 83605; 83735; 84145; 84443; 85025; 87493; 93005; 93306; 96361; 96372; 96374; 99285; G0378; J1650; J1815; J2405; J2543; J7030; Q9967